=== PATIENT | female | born 1990 | race African-American/Black ===

== ENCOUNTER 2018-10-25 22:47 | Emergency (ER) | payer SELFPAY ==
[~2018-10-25] VITALS: Ht 149.9 cm; Wt 84.4 kg
--- OUTSIDE RECORDS SUMMARY | 2018-10-25 22:50 | XMS REPORT | Clinical Summary ---
Author Author [facility] Organization [facility] Address Unknown Phone Unavailable Care Team Providers Care Instrument Room Technician Name Role Phone Bee Ortiz PCP Allergies Active Allergy Reactions Severity Noted Date Comments Tramadol Itching 03/26/2018 Current Medications Prescription Sig. Disp. Refills Start End Date Status Date pyridoxine (VITAMIN B-6) Take 1 Tab by mouth 2 60 Tab 11 12/02/19 Active 100 mg tabletIndications: times daily. 12 Hyperemesis gravidarum ALPRAZolam (XANAX) 0.5 mg TAKE ONE TABLET BY MOUTH 0 02/15/20 Active tablet THREE TIMES DAILY 18 ergocalciferol (VITAMIN Take 1 capsule by mouth 12 capsule 1 04/28/20 Active D2) 50,000 unit weekly. 18 capsuleIndications: Vitamin D deficiency lidocaine (LIDODERM) 5 % Apply 1 Patch to skin as 30 Patch 3 04/28/20 Active patchIndications: Chronic directed daily Leave 18 pain of multiple joints, patch(es) on for up to 12 History of hip fracture hours, then 12 hours off.. pregabalin (LYRICA) 300 Take 1 capsule by mouth 2 60 capsule 5 04/28/20 Active mg capsuleIndications: times daily. 18 Chronic pain of multiple joints, History of hip fracture ibuprofen (MOTRIN) 800 mg Take 1 tablet by mouth 90 tablet 5 04/28/20 Active tabletIndications: every 8 hours as needed 18 Chronic pain of multiple for Pain. joints, History of hip fracture tiZANidine (ZANAFLEX) 4 Take 2 tablets by mouth 3 150 tablet 0 04/28/20 Active mg tabletIndications: times daily as needed for 18 Chronic pain of multiple Muscle Spasms. joints traZODone (DESYREL) 100 Take 1 tablet by mouth at 30 tablet 1 08/08/20 Active mg tabletIndications: bedtime nightly. 18 Schizoaffective disorder, depressive type lamoTRIgine (LAMICTAL) 25 Take 1 tablet po q day 42 tablet 0 08/08/20 Active mg tabletIndications: for 2 weeks, increase to 18 Schizoaffective disorder, 2 tablets po q day depressive type starting 3, 4 week. naproxen (NAPROSYN) 500 Take 1 tablet by mouth 2 30 tablet 0 08/12/20 Active mg tabletIndications: times daily as needed for 18 Chronic dental pain Pain. lamoTRIgine (LAMICTAL) Take 1 tablet by mouth 30 tablet 1 08/22/20 Active 100 mg tabletIndications: daily. 18 Schizoaffective disorder, depressive type traZODone (DESYREL) 100 Take 2 tablets by mouth 60 tablet 1 08/22/20 Active mg tabletIndications: at bedtime nightly. 18 Schizoaffective disorder, depressive type OLANZapine (ZYPREXA) 20 Take 0.5 tablet po bid. 30 tablet 1 08/22/20 Active mg tabletIndications: 18 Schizoaffective disorder, depressive type clonazePAM (KLONOPIN) 0.5 Take 1 tablet by mouth 2 60 tablet 1 08/22/20 Active mg tabletIndications: times daily as needed for 18 Schizoaffective disorder, Anxiety. depressive type lamoTRIgine (LAMICTAL) Take 100 mg by mouth 1 02/15/20 08/08/20 Discontin 100 mg tablet every morning. 18 18 ued OLANZapine (ZYPREXA) 20 TAKE ONE TABLET BY MOUTH 1 02/15/20 08/08/20 Discontin mg tablet EVERY NIGHT 18 18 ued traZODone (DESYREL) 50 mg TAKE ONE TO TWO TABLETS 1 02/15/20 04/28/20 Discontin tablet BY MOUTH EVERY NIGHT 18 18 ued ibuprofen (MOTRIN) 600 mg Take 1 tablet by mouth 90 tablet 1 03/26/20 04/28/20 Discontin tabletIndications: every 8 hours as needed 18 18 ued Chronic pain of multiple for Pain. joints tiZANidine (ZANAFLEX) 4 Take 1 tablet by mouth 3 30 tablet 0 03/26/20 04/28/20 Discontin mg tabletIndications: times daily as needed for 18 18 ued Chronic pain of multiple Muscle Spasms. joints chlorhexidine (PERIDEX) Swish with 1/2 oz of 473 mL 3 04/09/20 08/01/20 0.12 % mouth solution in mouth for 30 18 18 washIndications: seconds and spit. Use Pericoronitis twice daily.. amoxicillin (AMOXIL) 500 Take 1 capsule by mouth 3 21 capsule 0 04/09/20 04/18/20 mg capsuleIndications: times daily for 7 days. 18 18 Pericoronitis naproxen (NAPROSYN) 500 Take 1 tablet by mouth 2 30 tablet 0 04/09/20 04/28/20 Discontin mg tabletIndications: times daily as needed for 18 18 ued Pericoronitis Pain. traZODone (DESYREL) 100 Take 1-2 tabs at bedtime 50 tablet 3 04/28/20 08/08/20 Discontin mg tabletIndications: as needed for insomnia. 18 18 ued History of hip fracture, Undifferentiated schizophrenia clarithromycin (BIAXIN) Take 1 tablet by mouth 2 20 tablet 0 07/07/20 07/17/20 500 mg tabletIndications: times daily for 10 days. 18 18 H. pylori infection omeprazole (PRILOSEC) 20 Take 1 capsule by mouth 2 28 capsule 0 07/07/20 07/21/20 mg delayed release times daily for 14 days. 18 18 capsuleIndications: H. pylori infection metroNIDAZOLE (FLAGYL) Take 1 tablet by mouth 2 20 tablet 0 07/07/20 07/17/20 500 mg tabletIndications: times daily for 10 days. 18 18 Vaginal discharge, H. pylori infection amoxicillin (AMOXIL) 500 Take 2 capsules by mouth 40 capsule 0 07/07/20 07/17/20 mg capsuleIndications: H. 2 times daily for 10 18 18 pylori infection days. OLANZapine (ZYPREXA) 20 Take 0.5 tablet po bid. 30 tablet 0 08/08/20 08/22/20 Discontin mg tabletIndications: 18 18 ued Schizoaffective disorder, depressive type clonazePAM (KLONOPIN) 1 Take 1 tablet po prn 20 tablet 0 08/08/20 08/22/20 Discontin mg tabletIndications: agitation, max 1 tablet 18 18 ued Schizoaffective disorder, in 24 hrs. depressive type Active Problems Problem Noted Date Schizophrenia 03/26/2018 Chronic pain of multiple joints 03/26/2018 Hyperemesis gravidarum 12/01/2011 Chest pain 11/28/2011 as incidental finding 11/08/2011 Vomiting 11/08/2011 Pelvic pain complicating 11/08/2011 UTI in 11/08/2011 Encounters Date Type Specialty Care Team Description 09/04/2018 Pharmacy Visit 08/29/2018 Pharmacy Visit 08/25/2018 Pharmacy Visit 08/22/2018 Office Visit Psychiatry Malyin Morgan MD Schizoaffective disorder, depressive type (Primary Dx) 08/22/2018 Pharmacy Visit 08/21/2018 Office Visit Family Practice Davis Castillo MD Patient left without Bee Ortiz PA being seen (Primary Dx) 08/21/2018 Pharmacy Visit 08/21/2018 Refill Family Practice Dean Gonzalez MD Chronic pain of multiple joints 08/21/2018 Pharmacy Visit 08/20/2018 Office Visit Dentistry Jj Caraballo DMD Dental caries (Primary Dx) 08/12/2018 Office Visit Dentistry Davis Castillo MD Chronic dental pain Jj Caraballo DMD (Primary Dx); Pericoronitis 08/12/2018 Pharmacy Visit 08/08/2018 Office Visit Psychiatry Maylin Morgan MD Schizoaffective disorder, depressive type (Primary Dx) 08/08/2018 Pharmacy Visit 07/16/2018 Pharmacy Visit 07/09/2018 Pharmacy Visit 07/07/2018 Office Visit Family Practice Bee Ortiz PA Vaginal discharge (Primary Dx); H. pylori infection; Encounter to discuss test results 07/07/2018 Pharmacy Visit 06/03/2018 Pharmacy Visit 05/27/2018 Pharmacy Visit 05/27/2018 Pharmacy Visit 04/28/2018 Ancillary Radiology Bee Ortiz PA Chronic low back pain Procedure without sciatica, unspecified back pain laterality 04/28/2018 Office Visit Family Practice Dean Gonzalez MD History of hip fracture (Primary Dx); Chronic pain of multiple joints; Undifferentiated schizophrenia; Vitamin D deficiency; Chronic low back pain without sciatica, unspecified back pain laterality; Exercise counseling 04/28/2018 Pharmacy Visit 04/28/2018 Pharmacy Visit 04/11/2018 Pharmacy Visit 04/09/2018 Office Visit Dentistry Jj Caraballo, DMD Pericoronitis (Primary Dx) 04/09/2018 Pharmacy Visit 03/31/2018 Pharmacy Visit 03/27/2018 Pharmacy Visit 03/26/2018 Ancillary Radiology Chronic pain of multiple Procedure joints 03/26/2018 Office Visit Family Practice Bee Ortiz PA Annual physical exam (Primary Dx); Chronic pain of multiple joints; Abdominal pain, epigastric; Schizophrenia, unspecified type 03/26/2018 Orders Only Family Practice Bee Ortiz PA Annual physical exam 03/26/2018 Pharmacy Visit after 10/24/2017 Family History Medical History Relation Name Comments Cancer Father colon Hypertension Mother Lipids Mother Relation Name Status Comments Father Mother Alive Social History Tobacco Use Types Packs/Day Years Used Date Never Smoker Smokeless Tobacco: Never Used Alcohol Use Drinks/Week oz/Week Comments No Sex Assigned at Date Recorded Not on file Last Filed Vital Signs Vital Sign Reading Time Taken Blood Pressure 110/70 08/22/2018 9:37 AM CDT Pulse 85 08/22/2018 9:37 AM CDT Temperature 37.3 C (99.1 F) 08/22/2018 9:37 AM CDT Respiratory Rate 20 08/22/2018 9:37 AM CDT Oxygen Saturation - - Inhaled Oxygen - - Concentration Weight 87.1 kg (192 lb) 08/22/2018 9:37 AM CDT Height 152.4 cm (5') 08/22/2018 9:37 AM CDT Body Mass Index 37.5 08/22/2018 9:37 AM CDT Plan of Treatment Date Type Specialty Care Team Description 11/06/2018 Office Visit Psychiatry Maylin Morgan MD [address] [place] [id number] [phone] 11/10/2018 Office Visit Oral Surgery Ref #: [id number] Health Maintenance Due Date Last Done Comments Cervical Cancer Scrn (3 2010 Yrs) IMM Influenza Seasonal 08/25/2018 Oct to January (>/=19 yrs) Procedures Procedure Name Priority Date/Time Associated Diagnosis Comments TRICHOMONAS VAGINALIS Routine 07/07/2018 Results for this 3:33 PM CDT procedure are in the results section. WET MOUNT Routine 07/07/2018 Vaginal discharge Results for this 3:33 PM CDT procedure are in the results section. SAMI STAIN Routine 07/07/2018 Vaginal discharge Results for this 3:33 PM CDT procedure are in the results section. CHLAM/GC DNA AMPLI Routine 07/07/2018 Vaginal discharge Results for this 3:33 PM CDT procedure are in the results section. XRAY SPINE LUMBOSACRAL Routine 04/28/2018 Chronic low back pain Results for this AP-LAT 4:13 PM CDT without sciatica, procedure are in the unspecified back pain results section. laterality XRAY KNEE 1 OR 2 VIEWS Routine 04/28/2018 Chronic pain of multiple Results for this (LIMITED-AP/LAT) 4:13 PM CDT joints procedure are in the History of hip fracture results section. XRAY HIP BILATERAL 2 Routine 04/28/2018 Chronic pain of multiple Results for this VIEWS AND AP PELVIS 4:13 PM CDT joints procedure are in the History of hip fracture results section. H. PYLORI ANTIBODIES, IGG Routine 03/26/2018 Abdominal pain, Results for this 12:44 PM CDT epigastric procedure are in the results section. HIV-1/HIV-2 ROUTINE Routine 03/26/2018 Annual physical exam Results for this SCREENING 10:22 AM CDT procedure are in the results section. VIT D, 25-HYDROXY Routine 03/26/2018 Annual physical exam Results for this 10:22 AM CDT procedure are in the results section. COMPREHENSIVE METABOLIC Routine 03/26/2018 Annual physical exam Results for this PANEL(DBIL NOT INCLUDED) 10:22 AM CDT procedure are in the results section. FREE T4 Routine 03/26/2018 Annual physical exam Results for this 10:22 AM CDT procedure are in the results section. HEMOGLOBIN A1C Routine 03/26/2018 Annual physical exam Results for this 10:22 AM CDT procedure are in the results section. TSH Routine 03/26/2018 Annual physical exam Results for this 10:22 AM CDT procedure are in the results section. LIPID PROFILE Routine 03/26/2018 Annual physical exam Results for this 10:22 AM CDT procedure are in the results section. CBC/DIFF Routine 03/26/2018 Annual physical exam Results for this 10:22 AM CDT procedure are in the results section. XRAY KNEE 1 OR 2 VIEWS Routine 03/26/2018 Chronic pain of multiple Results for this (LIMITED-AP/LAT) 10:00 AM CDT joints procedure are in the results section. XRAY FEMUR 1 VIEW Routine 03/26/2018 Chronic pain of multiple Results for this 10:00 AM CDT joints procedure are in the results section. XRAY HIP BILATERAL 3-4 Routine 03/26/2018 Chronic pain of multiple Results for this VIEWS AND AP PELVIS 10:00 AM CDT joints procedure are in the results section. URINE DRUG SCREEN Routine 03/26/2018 Chronic pain of multiple Results for this 9:17 AM CDT joints procedure are in the results section. UA CHEMISTRIES Routine 03/26/2018 Annual physical exam Results for this 9:17 AM CDT procedure are in the results section. after 10/24/2017 Results * TRICHOMONAS VAGINALIS (07/07/2018 3:33 PM) Trich Vaginalis Negative BT DIAGNOSTIC This test utilizes FDA cleared IMMUNOLOGY APTIMA Trichomonasvaginalis Assay by TMA from [employer] for qualitative nucleic acid amplification test (NAAT) for the detection of ribosome RNA (rRNA) from Trichomonas vaginalis. SPEC DESCRIPTION Endovervical M3 ([facility]) Specimen Cervix Performing Organization Address [facility] Phone Number [employer] DIAGNOSTIC IMMUNOLOGY M3 ([facility]) * CHLAM/GC DNA AMPLI (07/07/2018 3:33 PM) Chlamydia trach Negative BT DIAGNOSTIC IMMUNOLOGY N gonorrhoeae Negative BT DIAGNOSTIC This test utilizes [employer] IMMUNOLOGY Aptima Combo 2 Assay for target amplification of rRNA for the qualitative detection of Chlamydia trachomatis and Neisseria gonorrhoeae. Spec Description Endovervical M3 ([facility]) Specimen Cervix - Endocervical Swab Performing Organization Address [facility] Phone Number [employer] BT DIAGNOSTIC IMMUNOLOGY M3 ([facility]) * WET MOUNT (07/07/2018 3:33 PM) Spec Description Vaginal M3 ([facility]) Order Comments None M3 ([facility]) Exam Bacteria present M2 ([facility]) Epithelial cells Clue cells present Report Status Final 07/07/2018 M2 ([facility]) Specimen Genital, vaginal - Vaginal Performing Organization Address [facility] Phone Number [employer] M3 ([facility]) M2 ([facility]) * SAMI STAIN (07/07/2018 3:33 PM) Spec Description Vaginal M3 ([facility]) Order Comments None M3 ([facility]) Direct Exam No fungus seen by SAMI M2 ([facility]) Report Status Final 07/07/2018 M2 ([facility]) Specimen Genital, vaginal - Vaginal Performing Organization Address [facility] Phone Number MISYS M3 ([facility]) M2 ([facility]) * XRAY HIP BILATERAL 2 VIEWS AND AP PELVIS (04/28/2018 4:13 PM) Impressions Performed At IMPRESSION: SMS 1.Unchanged appearance of the partially visualized plate and screw construct fixating the left femur fracture. 2.No acute osseous abnormality. Dictated By: Adan Whaley MD, 04/28/2018 5:42 PM I have reviewed the study and agree with the findings in this report. Signed By: Bruno Koch MD, 04/29/2018 8:52 AM Narrative Performed At EXAM: BILATERAL HIP RADIOGRAPHS SMS COMPARISON: Hip series on 04/13/2018 DISCUSSION: None Procedure Note Interface, Rad/Mammog In - 04/29/2018 8:57 AM CDT EXAM: BILATERAL HIP RADIOGRAPHS COMPARISON: Hip series on 04/13/2018 DISCUSSION: None IMPRESSION IMPRESSION: 1. Unchanged appearance of the partially visualized plate and screw construct fixating the left femur fracture. 2. No acute osseous abnormality. Dictated By: Adan Whaley MD, 04/28/2018 5:42 PM I have reviewed the study and agree with the findings in this report. Signed By: Bruno Koch MD, 04/29/2018 8:52 AM Performing Organization Address [facility] Phone Number SMS * XRAY KNEE 1 OR 2 VIEWS (LIMITED-AP/LAT) (04/28/2018 4:13 PM) Only the most recent of 2 results within the time period is included. Impressions Performed At IMPRESSION: SMS 1.Patient is status post ORIF with placement of plate and screw construct fixating a healed distal femur fracture. Stable mild lucency around the distal screws. 2.No new findings. Dictated By: Adan Whaley MD, 04/28/2018 5:44 PM I have reviewed the study and agree with the findings in this report. Signed By: Bruno Koch MD, 04/29/2018 8:53 AM Narrative Performed At EXAM: RIGHTKNEE RADIOGRAPHS SMS HISTORY:Knee pain COMPARISON: Knee radiograph on 03/26/2018 DISCUSSION: See impression Procedure Note Interface, Rad/Mammog In - 04/29/2018 8:58 AM CDT EXAM: RIGHT KNEE RADIOGRAPHS HISTORY: Knee pain COMPARISON: Knee radiograph on 03/26/2018 DISCUSSION: See impression IMPRESSION IMPRESSION: 1. Patient is status post ORIF with placement of plate and screw construct fixating a healed distal femur fracture. Stable mild lucency around the distal screws. 2. No new findings. Dictated By: Adan Whaley MD, 04/28/2018 5:44 PM I have reviewed the study and agree with the findings in this report. Signed By: Bruno Koch MD, 04/29/2018 8:53 AM Performing Organization Address [facility] Phone Number SMS * XRAY SPINE LUMBOSACRAL AP-LAT (04/28/2018 4:13 PM) Impressions Performed At IMPRESSION: SMS No acute osseous lesion. Dictated By: Adan Whaley MD, 04/28/2018 5:45 PM I have reviewed the study and agree with the findings in this report. Signed By: Bruno Koch MD, 04/29/2018 8:53 AM Narrative Performed At EXAM: Lumbosacral spine series SMS TECHNIQUE: AP, Lateral and spot lateralviews (3 total images provided) HISTORY:chronic back pain DISCUSSION: There are five nonrib-bearing lumbar vertebral bodies. The alignment is normal. No displaced fracture or compression deformity is identified. The disc spaces are well maintained. The sacrum is partially obscured by stool and overlying bowel gas. Procedure Note Interface, Rad/Mammog In - 04/29/2018 8:59 AM CDT EXAM: Lumbosacral spine series TECHNIQUE: AP, Lateral and spot lateral views (3 total images provided) HISTORY: chronic back pain DISCUSSION: There are five nonrib-bearing lumbar vertebral bodies. The alignment is normal. No displaced fracture or compression deformity is identified. The disc spaces are well maintained. The sacrum is partially obscured by stool and overlying bowel gas. IMPRESSION IMPRESSION: No acute osseous lesion. Dictated By: Adan Whaley MD, 04/28/2018 5:45 PM I have reviewed the study and agree with the findings in this report. Signed By: Bruno Koch MD, 04/29/2018 8:53 AM Performing Organization Address [facility] Phone Number SMS * H. PYLORI ANTIBODIES, IGG (03/26/2018 12:44 PM) H. pylori, IgG, Abs 4.91 LABORATORY Reference range: 0.00 to 0.79 [employer]PORATION OF Unit: Index Value JOCELYN (note) Nega tive <0.80 Equi vocal0.80 - 0.89 Posi tive >0.89 Specimen Blood bag - BLOOD Performing Organization Address City/State/Zipcode Phone Number [facility] [address] [place] [address] JOCELYN 145 * VIT D, 25-HYDROXY (03/26/2018 10:22 AM) Vit D, 25-Hydroxy 24.3 (L) 30 - 100 ng/mL BT DIAGNOSTIC Comment: IMMUNOLOGY Vitamin D deficiency has been defined by the [place] of Medicine and Endocrine Society guideline as a level of serum 25-OH Vitamin D less than 20 ng/mL. The Endocrine Society further defines Vitamin D insufficiency as a level between 21 and 29 ng/mL and sufficiency as a level between 30 and 100 ng/mL. Performing Organization Address City/[facility] Phone Number [facility] BT DIAGNOSTIC IMMUNOLOGY * HIV-1/HIV-2 ROUTINE SCREENING (03/26/2018 10:22 AM) HIV-1/HIV-2 Negative NEG BT MAIN-STATION 3 Performing Organization Address [facility] Phone Number KATHLEEN BT MAIN-STATION 3 * HEMOGLOBIN A1C (03/26/2018 10:22 AM) Hemoglobin A1c 5.8 4.3 - 6.1 % BT DIAGNOSTIC IMMUNOLOGY Est Average Gluc 119.8 mg/dL BT DIAGNOSTIC IMMUNOLOGY Specimen Blood Performing Organization Address [facility] Phone Number MISYS BT DIAGNOSTIC IMMUNOLOGY * COMPREHENSIVE METABOLIC PANEL(DBIL NOT INCLUDED) (03/26/2018 10:22 AM) Albumin 4.5 3.7 - 5.3 g/dL BT MAIN-STATION 4 Calcium 9.5 8.6 - 10.3 mg/dL BT MAIN-STATION 4 CO2 24 21 - 31 mmol/L BT MAIN-STATION 4 Chloride 106 98 - 107 mmol/L BT MAIN-STATION 4 Creatinine 0.70 0.6 - 1.2 mg/dL BT MAIN-STATION 4 Glucose 87 70 - 110 mg/dL BT MAIN-STATION 4 Alk Phos 71 34 - 104 U/L BT MAIN-STATION 4 Potassium 4.4 3.5 - 5.1 mmol/L BT MAIN-STATION 4 Sodium 137 136 - 145 mmol/L BT MAIN-STATION 4 ALT 31 7 - 52 U/L BT MAIN-STATION 4 AST 19 13 - 39 U/L BT MAIN-STATION 4 Urea Nitrogen 13 7 - 25 mg/dL BT MAIN-STATION 4 T Bilirubin 0.4 0.2 - 1.2 mg/dL BT MAIN-STATION 4 T Protein 7.2 6.0 - 8.3 g/dL BT MAIN-STATION 4 GFR, Estimated >60 mL/min/1.73 m2 BT MAIN-STATION 4 GFR, Estim, Afr-Am >60 mL/min/1.73 m2 BT MAIN-STATION 4 Anion Gap 7 BT MAIN-STATION 4 Specimen Blood Performing Organization Address [facility] Phone Number MISYS MAIN-STATION 4 * TSH (03/26/2018 10:22 AM) TSH 0.68 0.45 - 5.33 uIU/mL BT MAIN-STATION 4 Specimen Blood Performing Organization Address [facility] Phone Number MISYS BT MAIN-STATION 4 * FREE T4 (03/26/2018 10:22 AM) Free T4 0.76 0.61 - 1.12 ng/dl BT MAIN-STATION 4 Comment: females: 1st Trimester-0.52-1.10 ng/dL 2nd Trimester=0.45-0.99 ng/dL 3rd Trimester=0.48-0.95 ng/dL Specimen Blood Performing Organization Address [facility] Phone Number MISYS BT MAIN-STATION 4 * LIPID PROFILE (03/26/2018 10:22 AM) Cholesterol 181 mg/dL BT MAIN-STATION 4 Comment: REFERENCE RANGE: Desirable: <200 mg/dL Borderline: 200-240 mg/dL High Risk: >240 mg/dL Triglyceride 91 <150 mg/dL BT MAIN-STATION 4 Comment: REFERENCE RANGE: Normal: <150 mg/dL Borderline High: 150-199 mg/dL High: 200-499 mg/dL Very High: >qg=626 mg/dL HDL 33 mg/dL BT MAIN-STATION 4 Comment: Increased CHD risk: <40 mg/dL Decreased CHD risk: >60 mg/dL LDL 130 mg/dL BT MAIN-STATION 4 Comment: REFERENCE RANGE: Optimal: <100 mg/dL Near Optimal: 100-129 mg/dL Borderline High: 130-159 mg/dL High: 160-189 mg/dL Very High: >tk=024 mg/dL Specimen Blood Performing Organization Address [facility] Phone Number MISYS BT MAIN-STATION 4 * CBC/DIFF (03/26/2018 10:22 AM) WBC 5.8 4.5 - 11.0 K/uL BT MAIN-STATION 2 RBC 4.86 4.20 - 5.40 M/uL BT MAIN-STATION 2 Hemoglobin 13.5 12.0 - 16.0 g/dL BT MAIN-STATION 2 Hematocrit 41.2 37.0 - 47.0 % BT MAIN-STATION 2 MCV 85 82 - 92 fL BT MAIN-STATION 2 MCH 27.8 27.0 - 32.0 pg BT MAIN-STATION 2 MCHC 32.8 32.0 - 36.0 g/dL BT MAIN-STATION 2 RDW 42.5 36.4 - 46.3 fL BT MAIN-STATION 2 Platelet 313 150 - 400 K/uL BT MAIN-STATION 2 Mean Platelet Volume 11.7 9.4 - 12.4 fL BT MAIN-STATION 2 Percent NRBC 0.0 BT MAIN-STATION 2 Absolute NRBC 0.00 BT MAIN-STATION 2 Neutrophil 45.9 34.0 - 70.0 % BT MAIN-STATION 2 Lymphocyte 45.6 20.0 - 50.0 % BT MAIN-STATION 2 Monocyte 6.3 5.0 - 12.0 % BT MAIN-STATION 2 Eosinophil 1.0 0.7 - 5.0 % BT MAIN-STATION 2 Basophil 1.0 0.1 - 1.2 % BT MAIN-STATION 2 Pct Immat Gran 0.2 0.0 - 0.5 BT MAIN-STATION 2 Neutrophil, Abs 2.64 1.56 - 6.13 K/uL BT MAIN-STATION 2 Lymphocyte, Abs 2.62 1.18 - 3.74 K/uL BT MAIN-STATION 2 Monocyte, Abs 0.36 0.24 - 0.36 K/uL BT MAIN-STATION 2 Eosinophil, Abs 0.06 0.04 - 0.36 K/uL BT MAIN-STATION 2 Basophil, Abs 0.06 0.01 - 0.08 K/uL BT MAIN-STATION 2 Absol Immat Gran 0.01 0.00 - 0.03 K/uL BT MAIN-STATION 2 Specimen Blood Performing Organization Address [facility] Phone Number MISYS MAIN-STATION 2 * XRAY FEMUR 1 VIEW (03/26/2018 10:00 AM) Impressions Performed At IMPRESSION: SMS 1. Status post ORIF with a plate-screw construct of a left femur fracture in the late stages of healing. Alignment is anatomic. No evidence of hardware failure. 2. No acute radiographic abnormality of the pelvis, hips or left femur. Dictated By: Cristian Foster MD, 03/26/2018 10:42 AM I have reviewed the study and agree with the findings in this report. Signed By: Salvador Cadet MD, 03/26/2018 11:17 AM Narrative Performed At EXAM: XRAY FEMUR 1 VIEW, XRAY HIP BILATERAL 3-4 VIEWS AND AP PELVIS SMS INDICATION: 27 y.o. female-left thigh pain hx of hardware COMPARISON: None. DISCUSSION: None Procedure Note Interface, Rad/Mammog In - 03/26/2018 11:22 AM CDT EXAM: XRAY FEMUR 1 VIEW, XRAY HIP BILATERAL 3-4 VIEWS AND AP PELVIS INDICATION: 27 y.o. female-left thigh pain hx of hardware COMPARISON: None. DISCUSSION: None IMPRESSION IMPRESSION: 1. Status post ORIF with a plate-screw construct of a left femur fracture in the late stages of healing. Alignment is anatomic. No evidence of hardware failure. 2. No acute radiographic abnormality of the pelvis, hips or left femur. Dictated By: Cristian Foster MD, 03/26/2018 10:42 AM I have reviewed the study and agree with the findings in this report. Signed By: Salvador Cadet MD, 03/26/2018 11:17 AM Performing Organization Address [facility] [place] Phone Number SMS * XRAY HIP BILATERAL 3-4 VIEWS AND AP PELVIS (03/26/2018 10:00 AM) Impressions Performed At IMPRESSION: SMS 1. Status post ORIF with a plate-screw construct of a left femur fracture in the late stages of healing. Alignment is anatomic. No evidence of hardware failure. 2. No acute radiographic abnormality of the pelvis, hips or left femur. Dictated By: Cristian Foster MD, 03/26/2018 10:42 AM I have reviewed the study and agree with the findings in this report. Signed By: Salvador Cadet MD, 03/26/2018 11:17 AM Narrative Performed At EXAM: XRAY FEMUR 1 VIEW, XRAY HIP BILATERAL 3-4 VIEWS AND AP PELVIS SMS INDICATION: 27 y.o. female-left thigh pain hx of hardware COMPARISON: None. DISCUSSION: None Procedure Note Interface, Rad/Mammog In - 03/26/2018 11:22 AM CDT EXAM: XRAY FEMUR 1 VIEW, XRAY HIP BILATERAL 3-4 VIEWS AND AP PELVIS INDICATION: 27 y.o. female-left thigh pain hx of hardware COMPARISON: None. DISCUSSION: None IMPRESSION IMPRESSION: 1. Status post ORIF with a plate-screw construct of a left femur fracture in the late stages of healing. Alignment is anatomic. No evidence of hardware failure. 2. No acute radiographic abnormality of the pelvis, hips or left femur. Dictated By: Cristian Foster MD, 03/26/2018 10:42 AM I have reviewed the study and agree with the findings in this report. Signed By: Salvador Cadet MD, 03/26/2018 11:17 AM Performing Organization Address [facility] [place] Phone Number SMS * UA CHEMISTRIES (03/26/2018 9:17 AM) Color Yellow M2 ([facility]) Clarity Clear M2 ([facility]) Spec [place] 1.020 1.001 - 1.035 M2 ([facility]) pH 6.0 5 - 8 M2 ([facility]) Protein Negative NEG M2 ([facility]) Glucose Negative NEG M2 ([facility]) Ketone Negative NEG M2 ([facility]) Bilirubin Negative NEG M2 ([facility]) Nitrate Negative NEG M2 ([facility]) Urobilinogen 0.2 0.2 - 1.0 EU/dL M2 ([facility]) Leukocyte Negative NEG M2 ([facility]) Blood Negative NEG M2 ([facility]) Specimen Urine Performing Organization Address [facility] [place] Phone Number MISYS M2 ([facility]) * URINE DRUG SCREEN (03/26/2018 9:17 AM) Amphetamine Negative NEG BT MAIN-ST[facility] 1 Comment: Calibrated Standard: D-Methamphetamine Positive if urine level >ty=7686 ng/mL Test performed on [id number] using EMIT Immunoassay Barbiturate Negative NEG BT MAIN-ST[facility] 1 Comment: Calibrated Standard: Secobarbital Positive if urine level is >kk=796 ng/mL Test performed on [id number] using EMIT Immunoassay Benzodiazepine Positive (A) NEG BT [facility] 1 Comment: Calibrated Standard: Lormethazepam Positive if urine level is >cd=385 ng/mL Test performed on [id number] using EMIT Immunoassay Cannabinoid Negative NEG BT [facility] 1 Comment: Calibrated Standard: 11 nor-delta(9)-THC carboxylic a Positive if urine level >or=50 Test performed on [id number] using EMIT Immunoassay Cocaine Negative NEG BT [facility]IN-[facility] 1 Comment: Calibrated Standard: Benzoylecgonine Positive if urine level >ha=703 Test performed on [id number] using EMIT Immunoassay Opiate, Ur Negative NEG BT [facility] 1 Comment: Calibrated Standard: Morphine Positive if urine level >aq=115 Test performed on [id number] using EMIT Immunoassay PCP Negative NEG BT [facility] 1 Comment: Calibrated Standard: Phencyclidine Positive if urine level >or=25 Test performed on [id number] using EMIT Immunoassay Urine Toxicology Screen results are to be used only for Medical purposes. Specimen Urine Performing Organization Address City/State/Zipcode Phone Number MISYS BT MAIN-[facility] 1 after 10/24/2017
--- OUTSIDE RECORDS SUMMARY | 2018-10-25 22:50 | XMS REPORT | Clinical Summary ---
Author Author PAMELLA [facility] Address Unknown Phone Unavailable Care Team Providers Care Summer School Coordinator Name Role Phone Sharpless PCP Allergies Comments Active Allergy Reactions Severity Noted Date Tramadol Hcl Hives 06/07/2017 Medications End Date Status Medication Sig Dispensed Refills Start Date Active amoxicillin (AMOXIL) 875 Take 875 mg 0 MG tablet by mouth 2 (two) times daily. Active Problems Not on file Family History Medical History Relation Name Comments Cancer Father Hypertension Father Hypertension Mother Relation Name Status Comments Father Mother Social History Date Tobacco Use Types Packs/Day Years Used Never Smoker Tobacco Cessation: Counseling Given: No Alcohol Use Drinks/Week oz/Week Comments No Sex Assigned at Date Recorded Not on file Industry Job Start Date Occupation Not on file Not on file Not on file Travel End Travel History Travel Start No recent travel history available. Last Filed Vital Signs Not on file Plan of Treatment Not on file Results Not on fileafter 10/24/2017 Insurance Payer Benefit Subscriber ID Type Phone Address Plan / Group MEDICAID MEDICAID xxxxxxxxx Medicaid [place]
--- OUTSIDE RECORDS SUMMARY | 2018-10-25 22:51 | XMS REPORT ---
Author Author [facility] Address Unknown Phone Unavailable Care Team Providers Care Telephone Directory Distributor Driver Name Role Phone LÓPEZ PAULA ZAN Unavailable Unavailable SHOAIB PÉREZ Unavailable Unavailable Problems This patient has no known problems. Allergies, Adverse Reactions, Alerts This patient has no known allergies or adverse reactions. Medications This patient has no known medications. Encounters Start Date/Time End Date/Time Encounter Type Admission Type Attending [facility] Facility Care Department Encounter ID 2018-11-10 00:00:00 2018-11-10 00:00:00 Outpatient [facility] [id number] 2018-11-06 00:00:00 2018-11-06 00:00:00 Outpatient [facility] [id number] 2018-08-25 00:00:00 2018-08-25 00:00:00 Outpatient [facility] [id number] 2018-08-22 09:44:30 2018-08-22 09:44:30 Outpatient [facility] [id number] 2018-08-21 09:30:00 2018-08-21 09:30:00 Outpatient [facility] [id number] 2018-08-20 12:13:42 2018-08-20 12:13:42 Outpatient [facility] [id number] Results Test Description Test Time Test Comments Text Results Atomic Results Result Comments WET PREP 2017-08-16 21:51:00 WBC WET PREP (BEAKER) (test jhiz=938) Few white blood cells seen CLUE CELLS (BEAKER) (test ocel=631) No clue cells seen YEAST WET PREP (BEAKER) (test qrrk=597) Few budding yeast seen TRICH WET PREP (BEAKER) (test kwki=853) No Trichomonas seen BACT WET PREP (BEAKER) (test oual=630) Moderate bacteria seen URINALYSIS W/ [id number] 21:50:00* Test Item Value Reference Range Comments COLOR (BEAKER) (test pbpz=480) Yellow CLARITY (BEAKER) (test uvxp=577) Clear SPECIFIC GRAVITY UA (BEAKER) (test ehzu=180) 1.025 1.001-1.035 PH UA (BEAKER) (test tfkp=954) 6.0 5.0-8.0 PROTEIN UA (BEAKER) (test khjc=240) Negative Negative GLUCOSE UA (BEAKER) (test mcsq=704) Negative Negative KETONES UA (BEAKER) (test kekr=173) Negative Negative BILIRUBIN UA (BEAKER) (test iqau=215) Negative Negative BLOOD UA (BEAKER) (test drsn=569) Trace Negative NITRITE UA (BEAKER) (test avzp=839) Negative Negative LEUKOCYTE ESTERASE UA (BEAKER) (test dajx=856) Trace Negative UROBILINOGEN UA (BEAKER) (test dqfh=348) 0.2 mg/dL 0.2-1.0 BACTERIA (BEAKER) (test qudy=159) Few MUCUS (BEAKER) (test arsi=4913) Few RBC UA-MANUAL (BEAKER) (test elzs=5733) 5-10 /HPF WBC UA-MANUAL (BEAKER) (test cggg=1935) 5-10 /HPF SQUAMOUS EPITHELIAL MANUAL (BEAKER) (test nhjp=0599) 20-50 /HPF SOURCE(BEAKER) (test bmto=4826) SCREEN, [id number] 21:47:00* Test Item Value Reference Range Comments TEST URINE (BEAKER) (test irql=227) Negative BASIC METABOLIC [id number] 17:45:00* Test Item Value Reference Range Comments SODIUM (BEAKER) (test oyxx=657) 136 meq/L 135-148 POTASSIUM (BEAKER) (test vmcc=659) 4.7 meq/L 3.6-5.5 CHLORIDE (BEAKER) (test sxrv=744) 107 meq/L 98-106 CO2 (BEAKER) (test erjw=887) 21 meq/L 24-32 BLOOD UREA NITROGEN (BEAKER) (test wqmo=160) 14 mg/dL 10-26 CREATININE (BEAKER) (test hjnc=006) 0.79 mg/dL 0.50-1.20 GLUCOSE RANDOM (BEAKER) (test byro=631) 94 mg/dL 70-110 CALCIUM (BEAKER) (test ilzh=278) 8.9 mg/dL 8.5-10.5 EGFR (BEAKER) (test qqid=9338) 106 mL/min/1.73 sq m ESTIMATED GFR IS NOT ACCURATE CREATININE CLEARANCE IN PREDICTING GLOMERULAR FILTRATION RATE. ESTIMATED GFR IS NOT APPLICABLE FOR DIALYSIS PATIENTS. HEPATIC FUNCTION [id number] 17:45:00* Test Item Value Reference Range Comments TOTAL PROTEIN (BEAKER) (test rxqz=075) 7.6 gm/dL 6.0-8.5 ALBUMIN (BEAKER) (test edqp=7775) 4.0 g/dL 3.5-5.0 BILIRUBIN TOTAL (BEAKER) (test nugv=434) 0.5 mg/dL 0.1-1.2 BILIRUBIN DIRECT (BEAKER) (test cvtz=498) 0.4 mg/dL 0.0-0.4 ALKALINE PHOSPHATASE (BEAKER) (test tder=198) 56 U/L 30-115 AST (SGOT) (BEAKER) (test mxnv=690) 25 U/L 5-40 ALT (SGPT) (BEAKER) (test apbm=567) 25 U/L 5-50 [id number] 17:45:00* Test Item Value Reference Range Comments LIPASE (BEAKER) (test qaxl=673) 65 U/L 40-240 URINALYSIS W/ [id number] 17:43:00* Test Item Value Reference Range Comments COLOR (BEAKER) (test zxxt=090) Dark Yellow CLARITY (BEAKER) (test lwue=084) Clear SPECIFIC GRAVITY UA (BEAKER) (test idas=521) 1.020 1.001-1.035 PH UA (BEAKER) (test hfjv=768) 6.0 5.0-8.0 PROTEIN UA (BEAKER) (test uqol=475) Negative Negative GLUCOSE UA (BEAKER) (test jsuv=636) Negative Negative KETONES UA (BEAKER) (test ierh=453) Trace Negative BILIRUBIN UA (BEAKER) (test dkul=027) Negative Negative BLOOD UA (BEAKER) (test nxll=762) Trace Negative NITRITE UA (BEAKER) (test hlkn=259) Negative Negative LEUKOCYTE ESTERASE UA (BEAKER) (test wfjl=165) Negative Negative UROBILINOGEN UA (BEAKER) (test aqha=840) 1.0 mg/dL 0.2-1.0 BACTERIA (BEAKER) (test ptqx=187) Occasional MUCUS (BEAKER) (test femy=5721) Few RBC UA-MANUAL (BEAKER) (test qnbz=0321) <5 /HPF WBC UA-MANUAL (BEAKER) (test uyin=0226) <5 /HPF SQUAMOUS EPITHELIAL MANUAL (BEAKER) (test flln=3774) <5 /HPF SOURCE(BEAKER) (test hpiv=0654) SCREEN, [id number] 17:38:00* Test Item Value Reference Range Comments TEST URINE (BEAKER) (test dfsw=701) Negative CBC W/PLT COUNT & AUTO [id number] 17:37:00* Test Item Value Reference Range Comments WHITE BLOOD CELL COUNT (BEAKER) (test fhud=536) 7.0 10e3/ L 4.0-10.0 RED BLOOD CELL COUNT (BEAKER) (test ybbm=024) 4.68 10e6/ L 4.00-5.00 HEMOGLOBIN (BEAKER) (test bklg=385) 13.0 g/dL 12.0-15.0 HEMATOCRIT (BEAKER) (test uneb=388) 38.8 % 36.0-45.0 MEAN CORPUSCULAR VOLUME (BEAKER) (test dpmx=805) 82.8 fL 82.0-99.0 MEAN CORPUSCULAR HEMOGLOBIN (BEAKER) (test nqgy=195) 27.8 pg 27.0-33.0 MEAN CORPUSCULAR HEMOGLOBIN CONC (BEAKER) (test eimg=785) 33.6 g/dL 32.0-36.0 RED CELL DISTRIBUTION WIDTH (BEAKER) (test ncnu=727) 13.5 % 10.3-14.2 PLATELET COUNT (BEAKER) (test bnhk=114) 342 10e3/ L 150-430 MEAN PLATELET VOLUME (BEAKER) (test nsnj=555) 9.1 fL 6.5-10.5 NEUTROPHILS RELATIVE PERCENT (BEAKER) (test lucz=625) 44 % LYMPHOCYTES RELATIVE PERCENT (BEAKER) (test ijgx=025) 47 % MONOCYTES RELATIVE PERCENT (BEAKER) (test oopk=808) 7 % EOSINOPHILS RELATIVE PERCENT (BEAKER) (test tqji=247) 2 % BASOPHILS RELATIVE PERCENT (BEAKER) (test cmnc=632) 1 % NEUTROPHILS ABSOLUTE COUNT (BEAKER) (test vkxo=046) 3.07 10e3/ L 1.80-8.00 LYMPHOCYTES ABSOLUTE COUNT (BEAKER) (test igin=119) 3.30 10e3/ L 1.48-4.50 MONOCYTES ABSOLUTE COUNT (BEAKER) (test uvqx=621) 0.48 10e3/ L 0.00-1.30 EOSINOPHILS ABSOLUTE COUNT (BEAKER) (test kqnf=459) 0.13 10e3/ L 0.00-0.50 BASOPHILS ABSOLUTE COUNT (BEAKER) (test gmpi=311) 0.04 10e3/ L 0.00-0.20
[2018-10-25] MEDS ORDERED: CYCLOBENZAPRINE HCL 10 MG TAB PO ONE (23:30)
[2018-10-25] MEDS ORDERED: KETOROLAC TROMETHAMINE 60 MG/2 ML VIAL IM ONE (23:30)
== END 2018-10-26 00:40 | disposition home or self-care (01) ==
LOC: FSED 22:47
DX: M54.6 Pain in thoracic spine (principal); S23.3XXA Sprain of ligaments of thoracic spine, initial encounter; M62.830 Muscle spasm of back
CPT/HCPCS: 99283

== ENCOUNTER 2018-11-14 15:52 | Emergency (ER) | payer SELFPAY ==
[~2018-11-14] VITALS: Ht 180.3 cm; Wt 86.2 kg
--- OUTSIDE RECORDS SUMMARY | 2018-11-14 15:55 | XMS REPORT | Clinical Summary ---
Author Author P[facility]LLA [facility] Address Unknown Phone Unavailable Care Team Providers Care Route Sales Trainee Name Role Phone Sharpless PCP Allergies Comments [...] Not on file Results Not on fileafter 11/13/2017 Insurance Payer Benefit Subscriber ID Type Phone Address Plan / Group MEDICAID MEDICAID xxxxxxxxx Medicaid OF [place]
--- OUTSIDE RECORDS SUMMARY | 2018-11-14 15:55 | XMS REPORT | Clinical Summary ---
Author Author [facility] Organization [facility] Address Unknown Phone Unavailable Care Team Providers Care Clinical Research Coordinator Name Role Phone Bee Ortiz PCP Allergies Comments Active Allergy Reactions Severity Noted Date Tramadol Itching 03/26/2018 Medications End Date Status Medication Sig Dispensed Refills Start Date Active pyridoxine (VITAMIN B-6) Take 1 Tab by 60 Tab 11 100 mg tabletIndications: mouth 2 times 2 Hyperemesis gravidarum daily. Active ALPRAZolam (XANAX) 0.5 mg TAKE ONE 0 tablet TABLET BY 8 MOUTH THREE TIMES DAILY Active ergocalciferol (VITAMIN Take 1 12 capsule 1 D2) 50,000 unit capsule by 8 capsuleIndications: mouth weekly. Vitamin D deficiency Active lidocaine (LIDODERM) 5 % Apply 1 Patch 30 Patch 3 patchIndications: Chronic to skin as 8 pain of multiple joints, directed History of hip fracture daily Leave patch(es) on for up to 12 hours, then 12 hours off.. Active pregabalin (LYRICA) 300 Take 1 60 capsule 5 mg capsuleIndications: capsule by 8 Chronic pain of multiple mouth 2 times joints, History of hip daily. fracture Active ibuprofen (MOTRIN) 800 mg Take 1 tablet 90 tablet 5 tabletIndications: by mouth 8 Chronic pain of multiple every 8 hours joints, History of hip as needed for fracture Pain. Active tiZANidine (ZANAFLEX) 4 Take 2 150 tablet 0 mg tabletIndications: tablets by 8 Chronic pain of multiple mouth 3 times joints daily as needed for Muscle Spasms. Active traZODone (DESYREL) 100 Take 1 tablet 30 tablet 1 mg tabletIndications: by mouth at 8 Schizoaffective disorder, bedtime depressive type nightly. Active lamoTRIgine (LAMICTAL) 25 Take 1 tablet 42 tablet 0 201 mg tabletIndications: po q day for 8 Schizoaffective disorder, 2 weeks, depressive type increase to 2 tablets po q day starting 3, 4 week. Active naproxen (NAPROSYN) 500 Take 1 tablet 30 tablet 0 201 mg tabletIndications: by mouth 2 8 Chronic dental pain times daily as needed for Pain. Active lamoTRIgine (LAMICTAL) Take 1 tablet 30 tablet 1 100 mg tabletIndications: by mouth 8 Schizoaffective disorder, daily. depressive type Active traZODone (DESYREL) 100 Take 2 60 tablet 1 mg tabletIndications: tablets by 8 Schizoaffective disorder, mouth at depressive type bedtime nightly. Active OLANZapine (ZYPREXA) 20 Take 0.5 30 tablet 1 mg tabletIndications: tablet po 8 Schizoaffective disorder, bid. depressive type Active clonazePAM (KLONOPIN) 0.5 Take 1 tablet 60 tablet 1 mg tabletIndications: by mouth 2 8 Schizoaffective disorder, times daily depressive type as needed for Anxiety. 08/08/2018 Discontinued lamoTRIgine (LAMICTAL) Take 100 mg 1 100 mg tablet by mouth 8 every morning. 08/08/2018 Discontinued OLANZapine (ZYPREXA) 20 TAKE ONE 1 mg tablet TABLET BY 8 MOUTH EVERY NIGHT 04/28/2018 Discontinued traZODone (DESYREL) 50 mg TAKE ONE TO 1 tablet TWO TABLETS 8 BY MOUTH EVERY NIGHT 04/28/2018 Discontinued ibuprofen (MOTRIN) 600 mg Take 1 tablet 90 tablet 1 tabletIndications: by mouth 8 Chronic pain of multiple every 8 hours joints as needed for Pain. 04/28/2018 Discontinued tiZANidine (ZANAFLEX) 4 Take 1 tablet 30 tablet 0 201 mg tabletIndications: by mouth 3 8 Chronic pain of multiple times daily joints as needed for Muscle Spasms. 08/01/2018 chlorhexidine (PERIDEX) Swish with 473 mL 3 0.12 % mouth 1/2 oz of 8 washIndications: solution in Pericoronitis mouth for 30 seconds and spit. Use twice daily.. 04/18/2018 amoxicillin (AMOXIL) 500 Take 1 21 capsule 0 mg capsuleIndications: capsule by 8 Pericoronitis mouth 3 times daily for 7 days. 04/28/2018 Discontinued naproxen (NAPROSYN) 500 Take 1 tablet 30 tablet 0 mg tabletIndications: by mouth 2 8 Pericoronitis times daily as needed for Pain. 08/08/2018 Discontinued traZODone (DESYREL) 100 Take 1-2 tabs 50 tablet 3 mg tabletIndications: at bedtime as 8 History of hip fracture, needed for Undifferentiated insomnia. schizophrenia 07/17/2018 clarithromycin (BIAXIN) Take 1 tablet 20 tablet 0 500 mg tabletIndications: by mouth 2 8 H. pylori infection times daily for 10 days. 07/21/2018 omeprazole (PRILOSEC) 20 Take 1 28 capsule 0 mg delayed release capsule by 8 capsuleIndications: H. mouth 2 times pylori infection daily for 14 days. 07/17/2018 metroNIDAZOLE (FLAGYL) Take 1 tablet 20 tablet 0 500 mg tabletIndications: by mouth 2 8 Vaginal discharge, H. times daily pylori infection for 10 days. 07/17/2018 amoxicillin (AMOXIL) 500 Take 2 40 capsule 0 mg capsuleIndications: H. capsules by 8 pylori infection mouth 2 times daily for 10 days. 08/22/2018 Discontinued OLANZapine (ZYPREXA) 20 Take 0.5 30 tablet 0 mg tabletIndications: tablet po 8 Schizoaffective disorder, bid. depressive type 08/22/2018 Discontinued clonazePAM (KLONOPIN) 1 Take 1 tablet 20 tablet 0 mg tabletIndications: po prn 8 Schizoaffective disorder, agitation, depressive type max 1 tablet in 24 hrs. Active Problems Problem Noted Date Schizophrenia 03/26/2018 Chronic pain of multiple joints 03/26/2018 Hyperemesis gravidarum 12/01/2011 Chest pain 11/28/2011 as incidental finding 11/08/2011 Vomiting 11/08/2011 Pelvic pain complicating 11/08/2011 UTI in 11/08/2011 Encounters Care Team Description Date Type Specialty Graham Laughlin DMD Encounter for screening for dental disorder (Primary Dx) 11/10/2018 Office Visit Oral Surgery 11/10/2018 Travel Maylin Morgan MD Schizoaffective disorder, depressive type (Primary Dx) 08/22/2018 Office Visit Psychiatry Davis Castillo MD Kaikai, Fatmata B, PA Patient left without being seen (Primary Dx) 08/21/2018 Office Visit Family Practice Dean Gonzalez MD Chronic pain of multiple joints 08/21/2018 Refill Family Practice Jj Caraballo DMD Dental caries (Primary Dx) 08/20/2018 Office Visit Dentistry Davis Castillo MD Okoli, Anthony C, DMD Chronic dental pain (Primary Dx); Pericoronitis 08/12/2018 Office Visit Dentistry Maylin Morgan MD Schizoaffective disorder, depressive type (Primary Dx) 08/08/2018 Office Visit Psychiatry Bee Ortiz PA Vaginal discharge (Primary Dx); H. pylori infection; Encounter to discuss test results 07/07/2018 Office Visit Family Practice Bee Ortiz PA Chronic low back pain without sciatica, unspecified back pain laterality 04/28/2018 Ancillary Radiology Procedure Dean Gonzalez MD History of hip fracture (Primary Dx); Chronic pain of multiple joints; Undifferentiated schizophrenia; Vitamin D deficiency; Chronic low back pain without sciatica, unspecified back pain laterality; Exercise counseling 04/28/2018 Office Visit Family Practice Jj Caraballo DMD Pericoronitis (Primary Dx) 04/09/2018 Office Visit Dentistry Chronic pain of multiple joints 03/26/2018 Ancillary Radiology Procedure Bee Ortiz PA Annual physical exam (Primary Dx); Chronic pain of multiple joints; Abdominal pain, epigastric; Schizophrenia, unspecified type 03/26/2018 Office Visit Family Practice Bee Ortiz PA Annual physical exam 03/26/2018 Orders Only Family Practice after 11/13/2017 Family History Medical History Relation Name Comments Cancer Father colon Hypertension Mother Lipids Mother Relation Name Status Comments Father Mother Alive Social History Date Tobacco Use Types Packs/Day Years Used Never Smoker Smokeless Tobacco: Never Used Alcohol Use Drinks/Week oz/Week Comments No Sex Assigned at Date Recorded Not on file Industry Job Start Date Occupation Not on file Not on file Not on file Travel End Travel History Travel Start No recent travel history available. Last Filed Vital Signs Time Taken Vital Sign Reading 11/10/2018 9:08 AM [employer] Blood Pressure 109/77 11/10/2018 9:08 AM [employer] Pulse 77 08/22/2018 9:37 AM CDT Temperature 37.3 C (99.1 F) 08/22/2018 9:37 AM CDT Respiratory Rate 20 - Oxygen Saturation - - Inhaled Oxygen - Concentration 11/10/2018 9:08 AM [employer] Weight 81.6 kg (180 lb) 11/10/2018 9:08 AM [employer] Height 152.4 cm (5') 11/10/2018 9:08 AM [employer] Body Mass Index 35.15 Plan of Treatment Care Team Description Date Type Specialty QianGraham, DMD [address] Room [place] [id number] [phone] iv sedation 12/09/2018 Office Visit Oral Surgery Health Maintenance Due Date Last Done Comments Cervical Cancer Scrn (3 2010 Yrs) IMM Influenza Seasonal 08/25/2018Aug to January (>/=19 yrs) Procedures Comments Procedure Name Priority Date/Time Associated Diagnosis XRAY PANOREX Routine 11/10/2018 Encounter for screening 9:20 AM [employer] for dental disorder TRICHOMONAS VAGINALIS Routine 07/07/2018 3:33 PM CDT WET MOUNT Routine 07/07/2018 Vaginal discharge 3:33 PM CDT SAMI STAIN Routine 07/07/2018 Vaginal discharge 3:33 PM CDT CHLAM/GC DNA AMPLI Routine 07/07/2018 Vaginal discharge 3:33 PM CDT XRAY SPINE LUMBOSACRAL Routine 04/28/2018 Chronic low back pain AP-LAT 4:13 PM CDT without sciatica, unspecified back pain laterality XRAY KNEE 1 OR 2 VIEWS Routine 04/28/2018 Chronic pain of multiple (LIMITED-AP/LAT) 4:13 PM CDT joints History of hip fracture XRAY HIP BILATERAL 2 Routine 04/28/2018 Chronic pain of multiple VIEWS AND AP PELVIS 4:13 PM CDT joints History of hip fracture H. PYLORI ANTIBODIES, IGG Routine 03/26/2018 Abdominal pain, 12:44 PM CDT epigastric HIV-1/HIV-2 ROUTINE Routine 03/26/2018 Annual physical exam SCREENING 10:22 AM CDT VIT D, 25-HYDROXY Routine 03/26/2018 Annual physical exam 10:22 AM CDT COMPREHENSIVE METABOLIC Routine 03/26/2018 Annual physical exam PANEL(DBIL NOT INCLUDED) 10:22 AM CDT FREE T4 Routine 03/26/2018 Annual physical exam 10:22 AM CDT HEMOGLOBIN A1C Routine 03/26/2018 Annual physical exam 10:22 AM CDT TSH Routine 03/26/2018 Annual physical exam 10:22 AM CDT LIPID PROFILE Routine 03/26/2018 Annual physical exam 10:22 AM CDT CBC/DIFF Routine 03/26/2018 Annual physical exam 10:22 AM CDT XRAY KNEE 1 OR 2 VIEWS Routine 03/26/2018 Chronic pain of multiple (LIMITED-AP/LAT) 10:00 AM CDT joints XRAY FEMUR 1 VIEW Routine 03/26/2018 Chronic pain of multiple 10:00 AM CDT joints XRAY HIP BILATERAL 3-4 Routine 03/26/2018 Chronic pain of multiple VIEWS AND AP PELVIS 10:00 AM CDT joints URINE DRUG SCREEN Routine 03/26/2018 Chronic pain of multiple 9:17 AM CDT joints UA CHEMISTRIES Routine 03/26/2018 Annual physical exam 9:17 AM CDT after 11/13/2017 Results * XRAY PANOREX (11/10/2018 9:20 AM [employer]) Impressions Performed At IMPRESSION: SMS 1. Dentition as described above. 2. Panorex is not sensitive for fracture or dislocation. 3. See dental report for details. If indicated, dedicated dental radiographs may be obtained to provide a more sensitive evaluation. Dictated By: Jr Rasmussen MD, 11/13/2018 5:46 PM I have reviewed the study and agree with the findings in this report. Signed By: Bruno Koch MD, 11/14/2018 9:03 AM Narrative Performed At EXAM:[facility] SMS INDICATIONS: dental screening COMPARISON:None. FINDINGS: Midline artifacts limit the evaluation. No fractures or TMJ dislocation is identified. There are no missing teeth.Impaction of teeth #1, #16, #17 and, #32 No dental caries is identified. No definite periapical lucency is seen. Procedure Note Interface, Rad/Mammog In - 11/14/2018 9:08 AM [employer] EXAM: [facility] INDICATIONS: dental screening COMPARISON: None. FINDINGS: Midline artifacts limit the evaluation. No fractures or TMJ dislocation is identified. There are no missing teeth. Impaction of teeth #1, #16, #17 and, #32 No dental caries is identified. No definite periapical lucency is seen. IMPRESSION IMPRESSION: 1. Dentition as described above. 2. Panorex is not sensitive for fracture or dislocation. 3. See dental report for details. If indicated, dedicated dental radiographs may be obtained to provide a more sensitive evaluation. Dictated By: Jr Rasmussen MD, 11/13/2018 5:46 PM I have reviewed the study and agree with the findings in this report. Signed By: Bruno Koch MD, 11/14/2018 9:03 AM Performing Organization Address City/State/Zipcode Phone Number SMS * TRICHOMONAS VAGINALIS (07/07/2018 3:33 PM CDT) Trich Vaginalis Negative BT DIAGNOSTIC This test utilizes FDA cleared IMMUNOLOGY APTIMA Trichomonasvaginalis Assay by TMA from [employer] for qualitative nucleic acid amplification test (NAAT) for the detection of ribosome RNA (rRNA) from Trichomonas vaginalis. SPEC Endovervical M3 ([facility]) DESCRIPTION Specimen Cervix Performing Organization Address [facility] Phone Number MISYS BT DIAGNOSTIC IMMUNOLOGY M3 ([facility]) * CHLAM/GC DNA AMPLI (07/07/2018 3:33 PM CDT) Chlamydia trach Negative BT DIAGNOSTIC IMMUNOLOGY N gonorrhoeae Negative BT DIAGNOSTIC This test utilizes [employer] Apt[employer] Combo 2 Assay for target amplification of rRNA for the qualitative detection of Chlamydia trachomatis and Neisseria gonorrhoeae. Spec Endovervical M3 ([facility]) Description Specimen Cervix - Endocervical Swab Performing Organization Address [facility] Phone Number MISYS BT DIAGNOSTIC IMMUNOLOGY M3 ([facility]) * WET MOUNT (07/07/2018 3:33 PM CDT) Spec Vaginal M3 ([facility]) Description Order Comments None M3 ([facility]) Exam Bacteria present M2 ([facility]) Epithelial cells Clue cells present Report Status Final 07/07/2018 M2 ([facility]) Specimen Genital, vaginal - Vaginal Performing Organization Address [facility] Phone Number MISYS M3 ([facility]) M2 ([facility]) * SAMI STAIN (07/07/2018 3:33 PM CDT) Spec Vaginal M3 ([facility]) Description Order Comments None M3 ([facility]) Direct Exam No fungus seen by SAMI M2 ([facility]) Report Status Final 07/07/2018 M2 ([facility]) Specimen Genital, vaginal - Vaginal Performing Organization Address [facility] Phone Number MISYS M3 ([facility]) M2 ([facility]) * XRAY HIP BILATERAL 2 VIEWS AND AP PELVIS (04/28/2018 4:13 PM CDT) Impressions Performed At IMPRESSION: SMS 1.Unchanged appearance [...] MD, 04/29/2018 8:52 AM Performing Organization Address [facility] Phone Number SMS * XRAY KNEE 1 OR 2 VIEWS (LIMITED-AP/LAT) (04/28/2018 4:13 PM CDT) Only the most recent of 2 results [...] AM Narrative Performed At EXAM: RIGHTKNEE RADIOGRAPHS [facility] HISTORY:Knee pain COMPARISON: Knee radiograph on 03/26/2018 [...] MD, 04/29/2018 8:53 AM Performing Organization Address [facility] Phone Number SMS * XRAY SPINE LUMBOSACRAL AP-LAT (04/28/2018 4:13 PM CDT) Impressions Performed At IMPRESSION: SMS No acute [...] MD, 04/29/2018 8:53 AM Performing Organization Address City/[facility] Phone Number [facility] * H. PYLORI ANTIBODIES, IGG (03/26/2018 12:44 PM CDT) H. pylori, IgG, 4.91 LABORATORY Abs Reference range: 0.00 to 0.79 [employer] OF Unit: Index Value JOCELYN (note) Nega tive <0.80 Equi vocal0.80 - 0.89 Posi tive >0.89 Specimen Blood bag - BLOOD Performing Organization Address City/[facility] Phone Number [facility] [address] [place] [address] JOCELYN 145 * VIT D, 25-HYDROXY (03/26/2018 10:22 AM CDT) Vit D, 24.3 (L) 30 - 100 ng/mL BT DIAGNOSTIC 25-Hydroxy Comment: IMMUNOLOGY Vitamin D deficiency has been defined by the [place] of [employer] and Endocrine Society guideline as a level of serum 25-OH Vitamin D less than 20 ng/mL. The Endocrine Society further defines Vitamin D insufficiency as a level between 21 and 29 ng/mL and sufficiency as a level between 30 and 100 ng/mL. Performing Organization Address City/[facility] Phone Number MISYS BT DIAGNOSTIC IMMUNOLOGY * HIV-1/HIV-2 ROUTINE SCREENING (03/26/2018 10:22 AM CDT) HIV-1/HIV-2 Negative NEG BT MAIN-STATION 3 Performing Organization Address [facility] Phone Number MISYS BT MAIN-STATION 3 * HEMOGLOBIN A1C (03/26/2018 10:22 AM CDT) Hemoglobin A1c 5.8 4.3 - 6.1 % BT DIAGNOSTIC IMMUNOLOGY Est Average 119.8 mg/dL BT DIAGNOSTIC Gluc IMMUNOLOGY Specimen Blood Performing Organization Address [facility] Phone Number MISYS BT DIAGNOSTIC IMMUNOLOGY * COMPREHENSIVE METABOLIC PANEL(DBIL NOT INCLUDED) (03/26/2018 10:22 AM CDT) Albumin 4.5 3.7 - 5.3 g/dL BT [...] mL/min/1.73 m2 BT MAIN-STATION 4 GFR, Estim, >60 mL/min/1.73 m2 BT MAIN-STATION Afr-Am 4 Anion Gap 7 BT MAIN-STATION 4 Specimen Blood Performing Organization Address City/[facility] Phone Number MISYS BT MAIN-STATION 4 * TSH (03/26/2018 10:22 AM CDT) TSH 0.68 0.45 - 5.33 uIU/mL BT MAIN-STATION 4 Specimen Blood Performing Organization Address [facility] Phone Number MISYS BT MAIN-STATION 4 * FREE T4 (03/26/2018 10:22 AM CDT) Free T4 0.76 0.61 - 1.12 ng/dl BT MAIN-STATION Comment: 4 females: 1st Trimester-0.52-1.10 ng/dL 2nd Trimester=0.45-0.99 ng/dL 3rd Trimester=0.48-0.95 ng/dL Specimen Blood Performing Organization Address [facility] Phone Number MISYS BT MAIN-STATION 4 * LIPID PROFILE (03/26/2018 10:22 AM CDT) Cholesterol 181 mg/dL BT MAIN-STATION Comment: 4 REFERENCE RANGE: Desirable: <200 mg/dL Borderline: 200-240 mg/dL High Risk: >240 mg/dL Triglyceride 91 <150 mg/dL BT MAIN-STATION Comment: 4 REFERENCE RANGE: Normal: <150 mg/dL Borderline High: 150-199 mg/dL High: 200-499 mg/dL Very High: >ug=657 mg/dL HDL 33 mg/dL BT MAIN-STATION Comment: 4 Increased CHD risk: <40 mg/dL Decreased CHD risk: >60 mg/dL LDL 130 mg/dL BT MAIN-STATION Comment: 4 REFERENCE RANGE: Optimal: <100 mg/dL Near Optimal: 100-129 mg/dL Borderline High: 130-159 mg/dL High: 160-189 mg/dL Very High: >vc=333 mg/dL Specimen Blood Performing Organization Address [facility] Phone Number MISYS BT MAIN-STATION 4 * CBC/DIFF (03/26/2018 10:22 AM CDT) WBC 5.8 4.5 - 11.0 K/uL BT [...] 400 K/uL BT MAIN-STATION 2 Mean Platelet 11.7 9.4 - 12.4 fL BT MAIN-STATION Volume 2 Percent NRBC 0.0 BT MAIN-STATION 2 [...] 0.08 K/uL BT MAIN-STATION 2 Absol Immat 0.01 0.00 - 0.03 K/uL BT MAIN-STATION Gran 2 Specimen Blood Performing Organization Address City/State/Zipcode Phone Number MISYS BT MAIN-STATION 2 * XRAY FEMUR 1 VIEW (03/26/2018 10:00 AM CDT) Impressions Performed At IMPRESSION: SMS 1. Status [...] MD, 03/26/2018 11:17 AM Performing Organization Address City/State/Zipcode Phone Number SMS * XRAY HIP BILATERAL 3-4 VIEWS AND AP PELVIS (03/26/2018 10:00 AM CDT) Impressions Performed At IMPRESSION: SMS 1. Status [...] HIP BILATERAL 3-4 VIEWS AND AP PELVIS [facility] INDICATION: 27 y.o. female-left thigh pain hx [...] MD, 03/26/2018 11:17 AM Performing Organization Address City/State/Zipcode Phone Number SMS * UA CHEMISTRIES (03/26/2018 9:17 AM CDT) Color Yellow M2 ([facility]) Clarity Clear M2 ([facility]) Spec Friant 1.020 1.001 - 1.035 M2 ([facility]) pH 6.0 5 - 8 M2 ([facility]) Protein Negative NEG M2 ([facility]) Glucose Negative NEG M2 ([facility]) Ketone Negative NEG M2 ([facility]) Bilirubin Negative NEG M2 ([facility]) Nitrate Negative NEG M2 ([facility]) Urobilinogen 0.2 0.2 - 1.0 EU/dL M2 ([facility]) Leukocyte Negative NEG M2 ([facility]) Blood Negative NEG M2 ([facility]) Specimen Urine Performing Organization Address [facility] Phone Number MISYS M2 ([facility]) * URINE DRUG SCREEN (03/26/2018 9:17 AM CDT) Amphetamine Negative NEG BT MAIN-STATION Comment: 1 Calibrated Standard: D-Methamphetamine Positive if urine level >ek=0797 ng/mL Test performed on [id number] using [employer] Immunoassay Barbiturate Negative NEG BT MAIN-STATION Comment: 1 Calibrated Standard: Secobarbital Positive if urine level is >ih=690 ng/mL Test performed on [id number] using [employer] Immunoassay Benzodiazepine Positive (A) NEG BT MAIN-STATION Comment: 1 Calibrated Standard: Lormethazepam Positive if urine level is >zz=368 ng/mL Test performed on [id number] using [employer] Immunoassay Cannabinoid Negative NEG BT MAIN-STATION Comment: 1 Calibrated Standard: 11 nor-delta(9)-THC carboxylic a Positive if urine level >or=50 Test performed on [id number] using [employer] Immunoassay Cocaine Negative NEG BT MAIN-STATION Comment: 1 Calibrated Standard: Benzoylecgonine Positive if urine level >qr=366 Test performed on [id number] using [employer] Immunoassay Opiate, Ur Negative NEG BT MAIN-STATION Comment: 1 Calibrated Standard: Morphine Positive if urine level >fx=881 Test performed on [id number] using [employer] Immunoassay PCP Negative NEG BT MAIN-STATION Comment: 1 Calibrated Standard: Phencyclidine Positive if urine level >or=25 Test performed on [id number] using [employer] Immunoassay Urine Toxicology Screen results are to be used only for Medical purposes. Specimen Urine Performing Organization Address City/State/Zipcode Phone Number MISYS BT MAIN-STATION 1 after 11/13/2017 Insurance Type Payer Benefit Subscriber ID Effective Phone Address Plan / Dates Group [employer] [employer] [place] x[place]x 2018- [phone] [address] [employer] FAMILY 2019 [id number] PLANNING [place], [place] [address] [employer] PLAN [employer] xxxxxx 2018-[id number] [place] [address] [place] [address] (Work) Advance Directives For more information, please contact: [address] [address] Date Inactivated Comments Code Status Date Activated 12/02/2011 2:51 PM Full Code 11/28/2011 11:30 AM
== END 2018-11-14 17:32 | disposition home or self-care (01) ==
LOC: FSED 15:52
DX: R50.9 Fever, unspecified (principal); R05 Cough; J11.1 Influenza due to unidentified influenza virus with other respiratory manifestations
CPT/HCPCS: 87400; 99283

== ENCOUNTER 2018-12-14 15:54 | Emergency (ER) | payer SELFPAY ==
[~2018-12-14] VITALS: Ht 152.4 cm; Wt 83.0 kg
--- OUTSIDE RECORDS SUMMARY | 2018-12-14 15:57 | XMS REPORT | Clinical Summary ---
Author Author [facility] Address Unknown Phone Unavailable Care Team Providers Care Manager Pediatric Name Role Phone Sharpless PCP Allergies Comments [...] Not on file Results Not on fileafter 12/13/2017 Insurance Payer Benefit Subscriber ID Type Phone Address Plan / Group MEDICAID MEDICAID xxxxxxxxx Medicaid OF [place]
--- OUTSIDE RECORDS SUMMARY | 2018-12-14 15:57 | XMS REPORT | Clinical Summary ---
Author Author [facility] Organization [facility] Address Unknown Phone Unavailable Care Team Providers Care Cook Helper Meat Name Role Phone Bee Ortiz PCP Allergies Comments Active Allergy Reactions Severity Noted Date Tramadol Itching 03/26/2018 Medications End Date Status Medication Sig Dispensed Refills Start Date Active pyridoxine (VITAMIN B-6) Take 1 Tab by 60 Tab 11 100 mg tabletIndications: mouth 2 times 2 Hyperemesis gravidarum daily. Active ergocalciferol (VITAMIN Take 1 12 capsule [...] daily as needed for Muscle Spasms. Active naproxen (NAPROSYN) 500 Take 1 tablet 30 tablet 0 mg tabletIndications: by mouth 2 8 Chronic dental pain times daily as needed for Pain. Active lamoTRIgine (LAMICTAL) Take 1 tablet 30 tablet 2 200 mg tabletIndications: by mouth 9 Schizoaffective disorder, daily. depressive type Active OLANZapine (ZYPREXA) 20 Take 0.5 90 tablet 0 mg tabletIndications: tablet po 9 Schizoaffective disorder, bid. depressive type Active traZODone (DESYREL) 100 Take 2 180 tablet 0 mg tabletIndications: tablets by 9 Schizoaffective disorder, mouth at depressive type bedtime nightly. Active clonazePAM (KLONOPIN) 0.5 Take 1 tablet 60 tablet 2 mg tabletIndications: by mouth 2 9 Schizoaffective disorder, times daily depressive type as needed for Anxiety. Active chlorhexidine (PERIDEX) Swish with 473 mL 0 0.12 % mouth 1/2 oz of 9 washIndications: Caries solution in mouth for 30 seconds and spit. Use twice daily.. Active acetaminophen-codeine Take 1 tablet 30 tablet 0 (TYLENOL/CODEINE #3) by mouth 9 300-30 mg per every 4 hours tabletIndications: Caries as needed for Pain. Active ibuprofen (MOTRIN) 600 mg Take 1 tablet 30 tablet 0 tabletIndications: Caries by mouth 9 every 6 hours as needed for Pain. 12/05/2018 Discontinued ALPRAZolam (XANAX) 0.5 mg TAKE ONE 0 tablet TABLET BY 8 MOUTH THREE TIMES DAILY 08/08/2018 Discontinued lamoTRIgine (LAMICTAL) Take 100 mg [...] 4 Take 1 tablet 30 tablet 0 mg tabletIndications: by mouth 3 8 Chronic [...] mouth 2 times daily for 10 days. 12/05/2018 Discontinued traZODone (DESYREL) 100 Take 1 tablet 30 tablet 1 mg tabletIndications: by mouth at 8 Schizoaffective disorder, bedtime depressive type nightly. 12/05/2018 Discontinued lamoTRIgine (LAMICTAL) 25 Take 1 tablet 42 tablet 0 mg tabletIndications: po q day for 8 Schizoaffective disorder, 2 weeks, depressive type increase to 2 tablets po q day starting 3, 4 week. 08/22/2018 Discontinued OLANZapine (ZYPREXA) 20 Take 0.5 30 tablet 0 08/08/201 mg tabletIndications: tablet po 8 Schizoaffective disorder, bid. depressive type 08/22/2018 Discontinued clonazePAM (KLONOPIN) 1 Take 1 tablet 20 tablet 0 08/08/201 mg tabletIndications: po prn 8 Schizoaffective disorder, agitation, depressive type max 1 tablet in 24 hrs. 12/05/2018 Discontinued lamoTRIgine (LAMICTAL) Take 1 tablet 30 tablet 1 100 mg tabletIndications: by mouth 8 Schizoaffective disorder, daily. depressive type 12/05/2018 Discontinued traZODone (DESYREL) 100 Take 2 60 tablet 1 mg tabletIndications: tablets by 8 Schizoaffective disorder, mouth at depressive type bedtime nightly. 12/05/2018 Discontinued OLANZapine (ZYPREXA) 20 Take 0.5 30 tablet 1 mg tabletIndications: tablet po 8 Schizoaffective disorder, bid. depressive type 12/05/2018 Discontinued clonazePAM (KLONOPIN) 0.5 Take 1 tablet 60 tablet 1 mg tabletIndications: by mouth 2 8 Schizoaffective disorder, times daily depressive type as needed for Anxiety. 12/12/2018 amoxicillin (AMOXIL) 500 Take 1 9 capsule 0 mg capsuleIndications: capsule by 9 Caries mouth 3 times daily for 3 days. Active Problems Problem Noted Date Schizophrenia 03/26/2018 Chronic pain of multiple joints 03/26/2018 Hyperemesis gravidarum 12/01/2011 Chest pain 11/28/2011 as incidental finding 11/08/2011 Vomiting 11/08/2011 Pelvic pain complicating 11/08/2011 UTI in 11/08/2011 Encounters Care Team Description Date Type Specialty 12/14/2018 Travel Emilie Estrada RN 12/14/2018 Nurse Triage Graham Laughlin DMD Gilbert, Harry D, DDS Caries (Primary Dx) 12/09/2018 Office Visit Oral Surgery Maylin Morgan MD Schizoaffective disorder, depressive type 12/05/2018 Office Visit Psychiatry 12/05/2018 Travel Graham Laughlin DMD Encounter for screening for dental disorder (Primary Dx) 11/10/2018 Office Visit Oral Surgery 11/10/2018 Travel Maylin Morgan MD Schizoaffective disorder, depressive type (Primary Dx) 08/22/2018 Office Visit Psychiatry Davis Castillo MD Kaikai, Fatmata B, PA Patient left without being seen (Primary Dx) 08/21/2018 Office Visit Family Practice Dean Gonzalez MD Chronic pain of multiple joints 08/21/2018 Refill [facility] Jj Caraballo DMD Dental caries (Primary [...] pain laterality; Exercise counseling 04/28/2018 Office Visit [facility] Jj Caraballo DMD Pericoronitis (Primary Dx) 04/09/2018 Office Visit Dentistry Chronic pain of multiple joints 03/26/2018 Ancillary Radiology Procedure Bee Ortiz PA Annual physical exam (Primary Dx); Chronic pain of multiple joints; Abdominal pain, epigastric; Schizophrenia, unspecified type 03/26/2018 Office Visit Family Practice Bee Ortiz PA Annual physical exam 03/26/2018 Orders Only Family Practice after 12/13/2017 Family History Medical History Relation Name Comments [...] Vital Signs Time Taken Vital Sign Reading 12/09/2018 10:21 AM SIGN LANGUAGE TEACHER Blood Pressure 113/73 12/09/2018 10:21 AM SIGN LANGUAGE TEACHER Pulse 75 12/09/2018 10:21 AM SIGN LANGUAGE TEACHER Temperature 37.1 C (98.8 F) 12/09/2018 10:21 AM SIGN LANGUAGE TEACHER Respiratory Rate 21 - Oxygen Saturation - - Inhaled Oxygen - Concentration 12/09/2018 10:21 AM SIGN LANGUAGE TEACHER Weight 83 kg (183 lb) 12/09/2018 10:21 AM SIGN LANGUAGE TEACHER Height 152.4 cm (5') 12/09/2018 10:21 AM SIGN LANGUAGE TEACHER Body Mass Index 35.74 Plan of Treatment Care Team Description Date Type Specialty Rock Vizcarra, DDS [address] [address] follow up post IV sedation 12/19/2018 Office Visit Oral Surgery Health Maintenance Due Date Last Done Comments Cervical Cancer Scrn (3 2010 Yrs) IMM Influenza Seasonal 08/25/2018Aug to January (>/=19 yrs) Procedures Comments Procedure Name Priority Date/Time Associated Diagnosis POC URINE Routine 12/09/2018 Caries 10:15 AM SIGN LANGUAGE TEACHER XRAY PANOREX Routine 11/10/2018 Encounter for screening 9:20 AM SIGN LANGUAGE TEACHER for dental disorder TRICHOMONAS VAGINALIS Routine 07/07/2018 [...] Annual physical exam 9:17 AM CDT after 12/13/2017 Results * POC URINE (12/09/2018 10:15 AM SIGN LANGUAGE TEACHER) POC Neg - Neg Pass - Pass Control * XRAY PANOREX (11/10/2018 9:20 AM SIGN LANGUAGE TEACHER) Impressions Performed At IMPRESSION: SMS 1. Dentition [...] Interface, Rad/Mammog In - 11/14/2018 9:08 AM SIGN LANGUAGE TEACHER EXAM: Panorex INDICATIONS: dental screening COMPARISON: None. [...] IMMUNOLOGY APTIMA Trichomonasvaginalis Assay by TMA from [employer] for qualitative nucleic acid amplification test (NAAT) for the detection of ribosome RNA (rRNA) from Trichomonas vaginalis. SPEC Endovervical M3 ([facility]) DESCRIPTION Specimen Cervix Performing Organization Address City/State/Zipcode Phone Number MISYS BT DIAGNOSTIC IMMUNOLOGY M3 ([facility]) * CHLAM/GC DNA AMPLI (07/07/2018 3:33 PM CDT) Chlamydia trach Negative BT DIAGNOSTIC IMMUNOLOGY N gonorrhoeae Negative BT DIAGNOSTIC This test utilizes [employer] IMMUNOLOGY Aptima Combo 2 Assay for target amplification of rRNA for the qualitative detection of Chlamydia trachomatis and Neisseria gonorrhoeae. Spec Endovervical M3 ([facility]) Description Specimen Cervix - Endocervical Swab Performing Organization Address [facility] Phone Number MISYS BT DIAGNOSTIC IMMUNOLOGY M3 ([facility]) * WET MOUNT (07/07/2018 3:33 PM CDT) Spec Vaginal M3 ([facility]) Description Order Comments None M3 ([facility]) Exam Bacteria present M2 ([facility]) Epithelial cells Clue cells present Report Status Final 07/07/2018 M2 ([facility]) Specimen Genital, vaginal - Vaginal Performing Organization Address [facility] Phone Number MISYS M3 ([facility]) M2 ([facility]) * SAMI STAIN (07/07/2018 3:33 PM CDT) Spec Vaginal M3 ([facility]) Description Order Comments None M3 ([facility]) Direct Exam No fungus seen by SAMI M2 ([facility]) Report Status Final 07/07/2018 M2 ([facility]) Specimen Genital, vaginal - Vaginal Performing Organization Address [facility] Phone Number MISYS M3 ([facility]) M2 ([facility]) * XRAY HIP BILATERAL 2 VIEWS [...] MD, 04/29/2018 8:52 AM Performing Organization Address [facility] Phone Number SMS * XRAY KNEE 1 [...] AM Narrative Performed At EXAM: RIGHTKNEE RADIOGRAPHS [facility] HISTORY:Knee pain COMPARISON: Knee radiograph [...] MD, 04/29/2018 8:53 AM Performing Organization Address [facility] Phone Number SMS * XRAY SPINE LUMBOSACRAL AP-LAT (04/28/2018 4:13 PM CDT) Impressions Performed At IMPRESSION: [facility] No acute osseous lesion. Dictated By: Adan [...] MD, 04/29/2018 8:53 AM Performing Organization Address [facility] Phone Number SMS * H. PYLORI ANTIBODIES, IGG (03/26/2018 12:44 PM CDT) H. pylori, IgG, 4.91 LABORATORY Abs Reference range: 0.00 to 0.79 [employer] Unit: Index Value JOCELYN (note) Nega tive <0.80 Equi vocal0.80 - 0.89 Posi tive >0.89 Specimen Blood bag - BLOOD Performing Organization Address [facility] Phone Number [employer] [address] [place] [address] JOCELYN 145 * VIT D, 25-HYDROXY (03/26/2018 10:22 AM CDT) Vit D, 24.3 (L) 30 - 100 ng/mL BT DIAGNOSTIC 25-Hydroxy Comment: IMMUNOLOGY Vitamin D deficiency has been defined by the [place] [employer] and Endocrine Society guideline as a level of serum 25-OH Vitamin D less than 20 ng/mL. The Endocrine Society further defines Vitamin D insufficiency as a level between 21 and 29 ng/mL and sufficiency as a level between 30 and 100 ng/mL. Performing Organization Address [facility] Phone Number [employer] BT DIAGNOSTIC IMMUNOLOGY * HIV-1/HIV-2 ROUTINE SCREENING (03/26/2018 10:22 AM CDT) HIV-1/HIV-2 Negative NEG BT MAIN-STATION 3 Performing Organization Address [facility] Phone Number MISYS BT MAIN-STATION 3 * HEMOGLOBIN A1C (03/26/2018 10:22 AM CDT) Hemoglobin A1c 5.8 4.3 - 6.1 % BT DIAGNOSTIC IMMUNOLOGY Est Average 119.8 mg/dL BT DIAGNOSTIC Gluc IMMUNOLOGY Specimen Blood Performing Organization Address [facility] Phone Number MISYS BT DIAGNOSTIC IMMUNOLOGY * [...] MAIN-STATION 4 Specimen Blood Performing Organization Address [facility] Phone Number MISYS BT MAIN-STATION 4 * TSH (03/26/2018 10:22 AM CDT) TSH 0.68 0.45 - 5.33 uIU/mL BT MAIN-STATION 4 Specimen Blood Performing Organization Address [facility] Phone Number MISYS BT MAIN-STATION 4 * FREE T4 (03/26/2018 10:22 AM CDT) Free T4 0.76 0.61 - 1.12 ng/dl BT MAIN-STATION Comment: 4 females: 1st Trimester-0.52-1.10 ng/dL 2nd Trimester=0.45-0.99 ng/dL 3rd Trimester=0.48-0.95 ng/dL Specimen Blood Performing Organization Address [facility] Phone Number MISYS BT MAIN-STATION 4 * LIPID PROFILE (03/26/2018 10:22 AM CDT) Cholesterol 181 mg/dL BT MAIN-STATION Comment: 4 REFERENCE RANGE: Desirable: <200 mg/dL Borderline: 200-240 mg/dL High Risk: >240 mg/dL Triglyceride 91 <150 mg/dL BT MAIN-STATION Comment: 4 REFERENCE RANGE: Normal: <150 mg/dL Borderline High: 150-199 mg/dL High: 200-499 mg/dL Very High: >hb=806 mg/dL HDL 33 mg/dL BT MAIN-STATION Comment: 4 Increased CHD risk: <40 mg/dL Decreased CHD risk: >60 mg/dL LDL 130 mg/dL BT MAIN-STATION Comment: 4 REFERENCE RANGE: Optimal: <100 mg/dL Near Optimal: 100-129 mg/dL Borderline High: 130-159 mg/dL High: 160-189 mg/dL Very High: >bf=011 mg/dL Specimen Blood Performing Organization Address [facility] Phone Number MISYS BT MAIN-STATION 4 * [...] MD, 03/26/2018 11:17 AM Performing Organization Address [facility] Phone Number SMS * UA CHEMISTRIES (03/26/2018 9:17 AM CDT) Color Yellow M2 ([facility]) Clarity Clear M2 ([facility]) Spec [place] 1.020 1.001 - 1.035 M2 ([facility]) pH 6.0 5 - 8 M2 ([facility]) Protein Negative NEG M2 ([facility]) Glucose Negative NEG M2 ([facility]) Ketone Negative NEG M2 ([facility]) Bilirubin Negative NEG M2 ([facility]) Nitrate Negative NEG M2 ([facility]) Urobilinogen 0.2 0.2 - 1.0 EU/dL M2 ([facility]) Leukocyte Negative NEG M2 ([facility]) Blood Negative NEG M2 ([facility]) Specimen Urine Performing Organization Address [facility] Phone Number MISYS M2 ([facility]) * URINE DRUG SCREEN (03/26/2018 9:17 AM CDT) Amphetamine Negative NEG BT MAIN-STATION Comment: 1 Calibrated Standard: D-Methamphetamine Positive if urine level >zm=8475 ng/mL Test performed on [id number] using EMIT Immunoassay Barbiturate Negative NEG BT MAIN-STATION Comment: 1 Calibrated Standard: Secobarbital Positive if urine level is >hu=139 ng/mL Test performed on [id number] using [employer] Immunoassay Benzodiazepine Positive (A) NEG BT MAIN-STATION Comment: 1 Calibrated Standard: Lormethazepam Positive if urine level is >qb=379 ng/mL Test performed on [id number] using [employer] Immunoassay Cannabinoid Negative NEG BT MAIN-STATION Comment: 1 Calibrated Standard: 11 nor-delta(9)-THC carboxylic a Positive if urine level >or=50 Test performed on [id number] using [employer] Immunoassay Cocaine Negative NEG BT MAIN-STATION Comment: 1 Calibrated Standard: Benzoylecgonine Positive if urine level >it=561 Test performed on [id number] using [employer] Immunoassay Opiate, Ur Negative NEG BT MAIN-STATION Comment: 1 Calibrated Standard: Morphine Positive if urine level >ob=109 Test performed on [id number] using [employer] Immunoassay PCP Negative NEG BT MAIN-STATION Comment: 1 Calibrated Standard: Phencyclidine Positive if urine level >or=25 Test performed on [id number] using [employer] Immunoassay Urine Toxicology Screen results are to be used only for Medical purposes. Specimen Urine Performing Organization Address [facility]/State/Zipcode Phone Number MISYS BT MAIN-STATION 1 after 12/13/2017 Insurance Type Payer Benefit Subscriber ID Effective Phone Address Plan / Dates Group [place] [employer] [place] xxxxxx 2018- [phone] IN[employer] FAMILY 2019 [id number] PLANNING [place], [place] [id number] [employer] PLAN [employer] PLAN xxxxxx 2018-[address] [place] [address] [place] [address] (Work) Advance Directives For more information, please contact: [address] [address] Date Inactivated Comments Code Status Date Activated 12/02/2011 2:51 PM Full Code 11/28/2011 11:30 AM
[2018-12-14] MEDS ORDERED: KETOROLAC TROME10 MG PO (16:34)
[2018-12-14] MEDS ORDERED: PENICILLIN V P250 MG PO (16:34)
== END 2018-12-14 16:50 | disposition home or self-care (01) ==
LOC: FSED 15:54
DX: K08.89 Other specified disorders of teeth and supporting structures (principal); H92.03 Otalgia, bilateral
CPT/HCPCS: 99282

== ENCOUNTER 2019-01-26 09:09 | Emergency (ER) | payer SELFPAY ==
[~2019-01-26] VITALS: Ht 180.3 cm; Wt 83.0 kg
[~2019-01-26 09:09] MED LIST: KETOROLAC TROME10 MG PO; PENICILLIN V P250 MG PO
--- OUTSIDE RECORDS SUMMARY | 2019-01-26 09:12 | XMS REPORT | Clinical Summary ---
Author Author [facility] Organization [facility] Address Unknown Phone Unavailable Care Team Providers Care Catia Designer Name Role Phone Bee Ortiz PCP Allergies [...] joints, History of hip daily. fracture Active tiZANidine (ZANAFLEX) 4 Take 2 150 tablet 0 mg tabletIndications: tablets by 8 Chronic pain of multiple mouth 3 times joints daily as needed for Muscle Spasms. Active lamoTRIgine (LAMICTAL) Take 1 tablet 30 tablet 2 200 mg tabletIndications: by mouth 9 Schizoaffective disorder, daily. depressive type Active OLANZapine (ZYPREXA) 20 Take 0.5 90 tablet 0 mg tabletIndications: tablet po 9 Schizoaffective disorder, bid. depressive type Active traZODone (DESYREL) 100 Take 2 180 tablet 0 01/11/201 mg tabletIndications: tablets by 9 Schizoaffective disorder, [...] (AMOXIL) 500 Take 1 21 capsule 0 05/16/201 mg capsuleIndications: capsule by 8 Pericoronitis mouth 3 times daily for 7 days. 04/28/2018 Discontinued naproxen (NAPROSYN) 500 Take 1 tablet 30 tablet 0 201 mg tabletIndications: by mouth 2 8 Pericoronitis times daily as needed for Pain. 08/08/2018 Discontinued traZODone (DESYREL) 100 Take 1-2 tabs 50 tablet 3 mg tabletIndications: at bedtime as 8 History of hip fracture, needed for Undifferentiated insomnia. schizophrenia 01/09/2019 Discontinued ibuprofen (MOTRIN) 800 mg Take 1 tablet 90 tablet 5 tabletIndications: by mouth 8 Chronic pain of multiple every 8 hours joints, History of hip as needed for fracture Pain. 07/17/2018 clarithromycin (BIAXIN) Take 1 tablet 20 [...] (ZYPREXA) 20 Take 0.5 30 tablet 0 201 mg tabletIndications: tablet po 8 Schizoaffective disorder, bid. depressive type 08/22/2018 Discontinued clonazePAM (KLONOPIN) 1 Take 1 tablet 20 tablet 0 201 mg tabletIndications: po prn 8 Schizoaffective disorder, agitation, depressive type max 1 tablet in 24 hrs. 01/09/2019 Discontinued naproxen (NAPROSYN) 500 Take 1 tablet 30 tablet 0 08/12/201 mg tabletIndications: by mouth 2 8 Chronic dental pain times daily as needed for Pain. 12/05/2018 Discontinued lamoTRIgine (LAMICTAL) Take 1 tablet [...] 3 days. Active Problems Problem Noted Date Dietary counseling for Above Normal BMI 01/09/2019 Breast pain in female 01/09/2019 Overview: Both upper outer quadrants Schizophrenia 03/26/2018 Chronic pain of multiple joints 03/26/2018 Hyperemesis gravidarum 12/01/2011 Chest pain 11/28/2011 as incidental finding 11/08/2011 Vomiting 11/08/2011 Pelvic pain complicating 11/08/2011 UTI in 11/08/2011 Encounters Care Team Description Date Type Specialty Bee Ortiz PA Breast pain in female 01/13/2019 Lab Appointment Lab Corina James PA Breast pain in female (Primary Dx); Dietary counseling for Above Normal BMI; BMI 35.0-35.9,adult 01/09/2019 Office Visit Family Practice 01/09/2019 Travel Rock Vizcarra, DDS Rakesh Rae DMD Dental caries (Primary Dx) 12/19/2018 Office Visit Oral Surgery 12/14/2018 Travel Emilie Estrada RN 12/14/2018 Nurse Triage Graham Laughlin, Rock Nevarez, DDS Caries (Primary Dx) 12/09/2018 Office Visit [...] Chronic pain of multiple joints 08/21/2018 Refill [facility] Jj Caraballo DMD Dental caries [...] exam 03/26/2018 Orders Only Family Practice after 01/25/2018 Family History Medical History Relation Name Comments Cancer Father colon Cancer Maternal Aunt breast Hypertension Mother Lipids Mother Cancer Paternal skin cancer Grandmother Relation Name Status Comments Father Maternal Aunt Alive Mother Alive Other Other paternal Great Aunt unknown cancer and Maternal graet Aunt cervic al cancer Paternal Grandmother Social History Date Tobacco Use Types Packs/Day Years Used Never Smoker Smokeless Tobacco: Never Used Alcohol Use Drinks/Week oz/Week Comments No Sex Assigned at Date Recorded Not on file Industry Job Start Date Occupation Not on file Not on file Not on file Travel End Travel History Travel Start No recent travel history available. Last Filed Vital Signs Time Taken Vital Sign Reading 01/09/2019 8:43 AM SKI TOP TRIMMER Blood Pressure 110/68 01/09/2019 8:43 AM SKI TOP TRIMMER Pulse 76 01/09/2019 8:43 AM SKI TOP TRIMMER Temperature 37.2 C (99 F) 01/09/2019 8:43 AM SKI TOP TRIMMER Respiratory Rate 20 - Oxygen Saturation - - Inhaled Oxygen - Concentration 01/09/2019 8:43 AM SKI TOP TRIMMER Weight 83 kg (183 lb) 01/09/2019 8:43 AM SKI TOP TRIMMER Height 152.4 cm (5') 01/09/2019 8:43 AM SKI TOP TRIMMER Body Mass Index 35.74 Plan of Treatment Care Team Description Date Type Specialty Bee Ortiz PA [address] [facility] [place] [address] [phone] 01/28/2019 Hospital Radiology Encounter Maylin Morgan MD [address] [place] [address] [phone] 03/18/2019 Office Visit Psychiatry Health Maintenance Due Date Last Done Comments Cervical Cancer Scrn (3 2010 Yrs) IMM Influenza Seasonal 08/25/2018 Oct to January (>/=19 yrs) Goals Goal Patient Associated Recent Progress Patient-Stat Author Goal Type Problems ed? Eat Healthy Lifestyle No Karen Carlson, HANDBOOK WRITER Procedures Comments Procedure Name Priority Date/Time Associated Diagnosis TEST Routine 01/13/2019 Breast pain in female 8:27 AM SKI TOP TRIMMER POC URINE Routine 12/09/2018 Caries 10:15 AM SKI TOP TRIMMER XRAY PANOREX Routine 11/10/2018 Encounter for screening 9:20 AM SKI TOP TRIMMER for dental disorder TRICHOMONAS VAGINALIS Routine 07/07/2018 [...] Annual physical exam 9:17 AM CDT after 01/25/2018 Results * TEST (01/13/2019 8:27 AM SKI TOP TRIMMER) Negative M3 ([facility]) Specimen Urine Performing Organization Address City/State/Zipcode Phone Number MISYS M3 ([facility]) * POC URINE (12/09/2018 10:15 AM SKI TOP TRIMMER) POC Neg - Neg Pass - Pass Control * XRAY PANOREX (11/10/2018 9:20 AM SKI TOP TRIMMER) Impressions Performed At IMPRESSION: SMS 1. Dentition [...] Interface, Rad/Mammog In - 11/14/2018 9:08 AM SKI TOP TRIMMER EXAM: Panorex INDICATIONS: dental screening COMPARISON: None. [...] MD, 11/14/2018 9:03 AM Performing Organization Address [facility] Phone Number SMS * TRICHOMONAS VAGINALIS (07/07/2018 3:33 PM CDT) Trich Vaginalis Negative BT DIAGNOSTIC This test utilizes FDA cleared IMMUNOLOGY APTIMA Trichomonasvaginalis Assay by TMA from [employer] for qualitative nucleic acid amplification test (NAAT) for the detection of ribosome RNA (rRNA) from Trichomonas vaginalis. SPEC Endovervical M3 ([facility]) DESCRIPTION Specimen Cervix Performing Organization Address [facility] Phone Number MISYS BT DIAGNOSTIC IMMUNOLOGY M3 ([facility]) * CHLAM/GC DNA AMPLI (07/07/2018 3:33 PM CDT) Chlamydia trach Negative BT DIAGNOSTIC IMMUNOLOGY N gonorrhoeae Negative BT DIAGNOSTIC This test utilizes [employer] IMMUNOLOGY Aptima Combo 2 Assay for target amplification of rRNA for the qualitative detection of Chlamydia trachomatis and Neisseria gonorrhoeae. Spec Endovervical M3 ([facility]) Description Specimen Cervix - Endocervical Swab Performing Organization Address [facility] Phone Number MISYS BT DIAGNOSTIC IMMUNOLOGY M3 ([facility]) * WET MOUNT (07/07/2018 3:33 PM CDT) Spec Vaginal M3 ([facility]) Description Order Comments None M3 ([facility]) Exam Bacteria present M2 ([facility]) Epithelial cells Clue cells present Report Status Final 07/07/2018 M2 ([facility]) Specimen Genital, vaginal - Vaginal Performing Organization Address [facility] Phone Number MISYS M3 ([facility]) M2 ([facility]) * SAMI STAIN (07/07/2018 3:33 PM CDT) Spec Vaginal M3 ([facility]) Description Order Comments None M3 ([facility]) Direct Exam No fungus seen by SAMI M2 ([facility]) Report Status Final 07/07/2018 M2 ([facility]) Specimen Genital, vaginal - Vaginal Performing Organization Address [facility] Phone Number MISYS M3 ([facility]) M2 ([facility]) * XRAY HIP BILATERAL 2 VIEWS AND [...] MD, 04/29/2018 8:52 AM Performing Organization Address [facility] Phone Number SMS * XRAY KNEE 1 [...] on 03/26/2018 DISCUSSION: See impression Procedure Note Martha, Sebastian/Gemaog In - 04/29/2018 8:58 AM CDT EXAM: [...] MD, 04/29/2018 8:53 AM Performing Organization Address City/State/Zipcode Phone Number SMS * XRAY SPINE LUMBOSACRAL [...] stool and overlying bowel gas. Procedure Note Martha, Sebastian/Mammog In - 04/29/2018 8:59 AM CDT EXAM: [...] MD, 04/29/2018 8:53 AM Performing Organization Address [facility] Phone Number SMS * H. PYLORI ANTIBODIES, IGG (03/26/2018 12:44 PM CDT) H. pylori, IgG, 4.91 LABORATORY Abs Reference range: 0.00 to 0.79 CORPORATION OF Unit: Index Value JOCELYN (note) Nega tive <0.80 Equi vocal0.80 - 0.89 Posi tive >0.89 Specimen Blood bag - BLOOD Performing Organization Address [facility] Phone Number Stat LABORATORY CORPOR[employer] OF [facility] [place] [address] JOCELYN 145 * VIT D, 25-HYDROXY (03/26/2018 10:22 AM CDT) Vit D, 24.3 (L) 30 - 100 ng/mL BT DIAGNOSTIC 25-Hydroxy Comment: IMMUNOLOGY Vitamin D deficiency has been defined by the [place] [employer] and Endocrine Society guideline as a level of serum 25-OH Vitamin D less than 20 ng/mL. The Endocrine Society further defines Vitamin D insufficiency as a level between 21 and 29 ng/mL and sufficiency as a level between 30 and 100 ng/mL. Performing Organization Address [facility] Phone Number MISYS BT DIAGNOSTIC IMMUNOLOGY * HIV-1/HIV-2 ROUTINE SCREENING (03/26/2018 10:22 AM CDT) HIV-1/HIV-2 Negative NEG BT MAIN-STATION 3 Performing Organization Address [facility] Phone Number MISYS BT MAIN-STATION 3 * HEMOGLOBIN A1C (03/26/2018 10:22 AM CDT) Hemoglobin A1c 5.8 4.3 - 6.1 % BT DIAGNOSTIC IMMUNOLOGY Est Average 119.8 mg/dL BT DIAGNOSTIC Gluc IMMUNOLOGY Specimen Blood Performing Organization Address [facility] Phone Number MISYS BT DIAGNOSTIC IMMUNOLOGY * [...] MAIN-STATION 4 Specimen Blood Performing Organization Address [facility] Phone Number [facility] * TSH (03/26/2018 10:22 AM CDT) TSH 0.68 0.45 - 5.33 uIU/mL BT MAIN-STATION 4 Specimen Blood Performing Organization Address [facility] Phone Number [facility] 4 * FREE T4 (03/26/2018 10:22 AM CDT) Free T4 0.76 0.61 - 1.12 ng/dl BT MAIN-STATION Comment: 4 females: 1st Trimester-0.52-1.10 ng/dL 2nd Trimester=0.45-0.99 ng/dL 3rd Trimester=0.48-0.95 ng/dL Specimen Blood Performing Organization Address [facility] Phone Number MISYS BT MAIN-STATION 4 * LIPID PROFILE (03/26/2018 10:22 AM CDT) Cholesterol 181 mg/dL BT MAIN-STATION Comment: 4 REFERENCE RANGE: Desirable: <200 mg/dL Borderline: 200-240 mg/dL High Risk: >240 mg/dL Triglyceride 91 <150 mg/dL BT MAIN-STATION Comment: 4 REFERENCE RANGE: Normal: <150 mg/dL Borderline High: 150-199 mg/dL High: 200-499 mg/dL Very High: >no=356 mg/dL HDL 33 mg/dL BT MAIN-STATION Comment: 4 Increased CHD risk: <40 mg/dL Decreased CHD risk: >60 mg/dL LDL 130 mg/dL BT MAIN-STATION Comment: 4 REFERENCE RANGE: Optimal: <100 mg/dL Near Optimal: 100-129 mg/dL Borderline High: 130-159 mg/dL High: 160-189 mg/dL Very High: >lp=333 mg/dL Specimen Blood Performing Organization Address City/State/Zipcode Phone Number MISYS BT MAIN-STATION 4 * [...] Gran 2 Specimen Blood Performing Organization Address [facility] Phone Number MISYS BT MAIN-STATION 2 * [...] HIP BILATERAL 3-4 VIEWS AND AP PELVIS [facility] INDICATION: 27 y.o. female-left thigh [...] MD, 03/26/2018 11:17 AM Performing Organization Address [facility] Phone Number SMS * XRAY HIP BILATERAL [...] HIP BILATERAL 3-4 VIEWS AND AP PELVIS [facility] INDICATION: 27 y.o. female-left thigh [...] AM Performing Organization Address City/State/Zipcode Phone Number [facility] * UA CHEMISTRIES (03/26/2018 9:17 AM CDT) Color Yellow M2 ([facility]) Clarity Clear M2 ([facility]) Spec [place] 1.020 1.001 - 1.035 M2 ([facility]) [...] M2 ([facility]) Blood Negative NEG M2 ([facility]) Specimen Urine Performing Organization Address City/State/Zipcode Phone Number MISYS M2 ([facility]) * URINE DRUG SCREEN (03/26/2018 9:17 AM CDT) Amphetamine Negative NEG BT MAIN-STATION Comment: 1 Calibrated Standard: D-Methamphetamine Positive if urine level >gh=8667 ng/mL Test performed on [id number] using [employer] Immunoassay Barbiturate Negative NEG BT MAIN-STATION Comment: 1 Calibrated Standard: Secobarbital Positive if urine level is >in=442 ng/mL Test performed on [id number] using [employer] Immunoassay Benzodiazepine Positive (A) NEG BT MAIN-STATION Comment: 1 Calibrated Standard: Lormethazepam Positive if urine level is >gp=781 ng/mL Test performed on [id number] using [employer] Immunoassay Cannabinoid Negative NEG BT MAIN-STATION Comment: 1 Calibrated Standard: 11 nor-delta(9)-THC carboxylic a Positive if urine level >or=50 Test performed on [id number] using [employer] Immunoassay Cocaine Negative NEG BT MAIN-STATION Comment: 1 Calibrated Standard: Benzoylecgonine Positive if urine level >ev=171 Test performed on [id number] using [employer] Immunoassay Opiate, Ur Negative NEG BT MAIN-STATION Comment: 1 Calibrated Standard: Morphine Positive if urine level >ew=322 Test performed on [id number] using [employer] Immunoassay PCP Negative NEG BT MAIN-STATION Comment: 1 Calibrated Standard: Phencyclidine Positive if urine level >or=25 Test performed on [id number] using [employer] Immunoassay Urine Toxicology Screen results are to be used only for Medical purposes. Specimen Urine Performing Organization Address City/State/Zipcode Phone Number MISYS BT MAIN-STATION 1 after 01/25/2018 Insurance Type Payer Benefit Subscriber ID Effective Phone Address Plan / Dates Group [facility] xxxxxx 2018- [phone] [employer] 2019 [id number] [place], [place] [address] Advance Directives For more information, please contact: [address] [address] Date Inactivated Comments Code Status Date Activated 12/02/2011 2:51 PM Full Code 11/28/2011 11:30 AM
--- OUTSIDE RECORDS SUMMARY | 2019-01-26 09:12 | XMS REPORT | Clinical Summary ---
Author Author P[facility]LL[facility] Address Unknown Phone Unavailable Care Team Providers Care Exploration Driller Name Role Phone Sharpless PCP Allergies Comments [...] Not on file Results Not on fileafter 01/25/2018 Insurance Payer Benefit Subscriber ID Type Phone Address Plan / Group MEDICAID MEDICAID xxxxxxxxx Medicaid [place]
[2019-01-26] MEDS ORDERED: DEXAMETHASONE SOD PHOS 10 MG/1 ML VIAL IM ONE (09:45)
--- NOTE | 2019-01-26 09:51 | NUR ---
PT HEARD CURSING TO REGISTRATION. REGISTRATION REMAIND PROFESSIONAL AND POLITE.
== END 2019-01-26 10:06 | disposition home or self-care (01) ==
LOC: FSED 09:09
DX: M54.5 Low back pain (principal); S39.012A Strain of muscle, fascia and tendon of lower back, initial encounter
CPT/HCPCS: 99283; J1100

== ENCOUNTER 2020-04-08 09:38 | Emergency (ER) | payer MEDICARE ==
[~2020-04-08] VITALS: Ht 152.4 cm; Wt 81.2 kg
--- OUTSIDE RECORDS SUMMARY | 2020-04-08 09:41 | XMS REPORT | Clinical Summary ---
Author Author [facility]LL[facility] Organization [facility] Address Unknown Phone Unavailable Care Team Providers Care Visual Basic Programmer Name Role Phone Sharpless PCP Allergies Comments Active Allergy Reactions Severity Noted Date Tramadol Hcl Hives 06/07/2017 Medications End Date Status Medication Sig Dispensed Refills Start Date Active amoxicillin (AMOXIL) 875 Take 875 mg 0 MG tablet by mouth 2 (two) times daily. 06/30/2019 acetaminophen-codeine Take 1-2 15 tablet 0 05/26 (TYLENOL #3) 300-30 mg tablets by 9 per tablet mouth every 6 (six) hours as needed for Pain for up to 10 days. Max Daily Amount: 8 tablets Active Problems Not on file Encounters Care Team Description Date Type Specialty Candice Orozco MD Acute hip pain, left (Primary Dx); Schizo affective schizophrenia (HCC); Obesity (BMI 30.0-34.9) 06/19/2019 Emergency Emergency Medicine - 06/20/2019 06/19/2019 Travel after 04/08/2019 Family History Medical History Relation Name Comments Cancer Father Hypertension Father Hypertension Mother Relation Name Status Comments Father Mother Social History Date Tobacco Use Types Packs/Day Years Used Never Smoker Smokeless Tobacco: Never Used Tobacco Cessation: Counseling Given: No Alcohol Use Drinks/Week oz/Week Comments No Sex Assigned at Date Recorded Not on file Industry Job Start Date Occupation Not on file Not on file Not on file Travel End Travel History Travel Start No recent travel history available. Last Filed Vital Signs Time Taken Vital Sign Reading 06/20/2019 1:09 AM CDT Blood Pressure 108/59 06/20/2019 1:09 AM CDT Pulse 65 06/19/2019 11:14 PM CDT Temperature 36.7 C (98 F) 06/20/2019 1:09 AM CDT Respiratory Rate 18 06/19/2019 11:14 PM CDT Oxygen Saturation 99% - Inhaled Oxygen - Concentration 06/19/2019 11:32 PM CDT Weight 83.9 kg (185 lb) 06/19/2019 11:32 PM CDT Height 152.4 cm (5') 06/19/2019 11:32 PM CDT Body Mass Index 36.13 Plan of Treatment Not on file Procedures Comments Procedure Name Priority Date/Time Associated Diag nosis XR HIP 2 VIEWS LEFT STAT 06/20/2019 12:26 AM CDT URINALYSIS W/ MICROSCOPIC STAT 06/19/2019 11:53 PM CDT SCREEN, URINE STAT 06/19/2019 11:53 PM CDT after 04/08/2019 Results * XR hip 2 views left (06/20/2019 12:26 AM CDT) Specimen Narrative Performed At FINAL REPORT GE [facility] RAD, HIP, 2 VIEWS, LEFT CLINICAL INDICATION:LEG PAIN COMPARISON: None FINDINGS: Two views of the left hip wer e obtained. The patient is status post ORIF of the left proximal to mid femur with a plate and screw device. The surg ical hardware is intact. There is no acute left hip fracture or disloc ation. IMPRESSION: Status post ORIF of the left proximal t o mid femur with intact surgical hardware. No acute left hip fracture or dislocati on. Signed: Liss Mejia MD Report Verified Date/Time: 9 00:32:18 Procedure Note Interface, External Ris In - 06/20/2019 12:34 AM CDT FINAL REPORT RAD, HIP, 2 VIEWS, LEFT CLINICAL INDICATION: LEG PAIN COMPARISON: None FINDINGS: Two views of the left hip were obtained. The patient is status post ORIF of the left proximal to mid femur with a plate and screw device. The surgical hardware is intact. There is no acute left hip fracture or dislocation. IMPRESSION: Status post ORIF of the left proximal to mid femur with intact surgical hardware. No acute left hip fracture or dislocation. Signed: Liss Mejia MD Report Verified Date/Time: 06/20/2019 00:32:18 Performing Organization Address City/State/Zipcode Ph one Number GE RIS * Screen, urine (06/19/2019 11:53 PM CDT) Preg Test, Ur Negative [facility] Specimen Urine Performing Organization Address [facility] Ph one Number [facility] [address] [place] [address] [facility] * Urinalysis w/Microscopic (06/19/2019 11:53 PM CDT) Color, UA Dark Yellow [facility] Clarity, UA Slightly Cloudy [facility] Specific [place], UA 1.035Comment: Refractometer = 1.001 - 1. 035 [facility] [address] [facility] pH, UA 6.5 5.0 - 8.0 [facility] Protein, UA Negative Negative [facility] Glucose, UA Negative Negative [facility] Ketones, UA Trace (A) Negative [facility] Bilirubin, UA Negative Negative [facility] Blood, UA Small (A) Negative [facility] Nitrite, UA Negative Negative [facility] Leukocytes, UA Negative Negative [facility] Urobilinogen, UA 0.2 0.2 - 1.0 mg/dL [facility], [facility] Bacteria, UA Few [facility], [facility] Mucus Few [facility], [facility], [facility] RBC, UA 5-10 /HPF [facility] WBC, UA <5 /HPF [facility], [facility] SQUAMOUS EPITHELIAL 10-20 /HPF [facility], [facility], [facility] Specimen Source [facility], [facility] Specimen Urine Performing Organization Address City/State/Zipcode Ph one Number [facility] [address] [place] [address] [facility], [facility], [facility] after 04/08/2019
--- OUTSIDE RECORDS SUMMARY | 2020-04-08 09:41 | XMS REPORT ---
Author Author [facility] t Organization [facility] Address [address] [place] [address] Phone Unavailable Care Team Providers Care Leach Cell Operator Name Role Phone NO, PCP PCP Unavailable KRISTEN VALDES Attphys Unavailable LÓPEZ PAULA Attphys Unavailable SHOAIB PÉREZ Attphys Unavailable Payers Payer Name Policy Type Policy Number Effective Date Expiration Date S ource Problems This patient has no known problems. Allergies, Adverse Reactions, Alerts Allergy Name Allergy Type Status Severity Reaction(s) Onset Date Inacti ve Date Treating Clinician Comments Source No Known Allergies DA Active U 2019-01-31 00:00:00 [facility] Tramadol Allergy to Substance Active Moderate Hives 2018-10-25 00:00:00 [facility] Medications Ordered Medication Name Filled Medication Name Start Date Stop Da te Current Medication? Ordering Clinician Indication Dosage Frequency Signature (SIG) Comments Components Source Ketorolac Tromethamine (Toradol) 10 Mg Tablet Ketorola c Tromethamine (Toradol) 10 Mg Tablet 2018-12-14 00:00:00 Yes Deshawn Nicole Md 10 Every 8 Hours for Pain [facility] Penicillin V Potassium 250 Mg Tablet Penicillin V Potassium 250 Mg Tablet 2018-12-14 00:00:00 Yes Deshawn Nicole Md 500 Four Times Daily [facility] Procedures This patient has no known procedures. Encounters Start Date/Time End Date/[facility] Source 2019-12-03 16:51:00 2019-12-03 17:32:[address] [facility] [id number] [facility] 2019-01-26 09:09:00 2019-01-26 10:06:[address] [facility] [id number] [facility] 2018-12-14 15:54:00 2018-12-14 16:50:[address] [facility] [id number] [facility] 2018-11-14 15:52:00 2018-11-14 17:32:[address] [facility] [id number] [facility] 2018-10-25 22:47:00 2018-10-26 00:40:[address] [facility] [id number] [facility] Results Test Description Test Time Test Comments Results Result Comments Source RAD, HIP, 2 VIEWS, LEFT 2019-06-20 00:32:00 Reason for exam: ->LEG PAINIs the patient ?->UnknownShould this be performed at the bedside?->No FINAL REPORT RAD, HIP, 2 VIEWS, LEFT CLINICAL INDICATION: LEG PAIN COMPARISON: None FINDINGS: Two views of the left hip were obtained. The patient is status post ORIF of the left proximal to mid femur with a plate and screw device. The surgical hardware is intact. There is no acute left hip fracture or dislocation. IMPRESSION:Status post ORIF of the left proximal to mid femur with intact surgical hardware.No acute left hip fracture or dislocation. Signed: Anette Mejia MDReport Verified Date/Time: 06/20/2019 00:32:18 ALYSIS W/ MICROSCOPIC 2019-06-20 00:13:00 Test Item COLOR (BEAKER) (test code = 470) Dark Yellow CLARITY (BEAKER) (test code = 469) Slightly Cloudy SPECIFIC GRAVITY UA (BEAKER) (test code = 468) 1.035 1.001-1 .035 Refractometer = 1.035 PH UA (BEAKER) (test code = 467) 6.5 5.0-8.0 PROTEIN UA (BEAKER) (test code = 464) Negative Negative GLUCOSE UA (BEAKER) (test code = 365) Negative Negative KETONES UA (BEAKER) (test code = 371) Trace Negative A BILIRUBIN UA (BEAKER) (test code = 462) Negative Negative BLOOD UA (BEAKER) (test code = 461) Small Negative A NITRITE UA (BEAKER) (test code = 465) Negative Negative LEUKOCYTE ESTERASE UA (BEAKER) (test code = 466) Negative Negat jamar UROBILINOGEN UA (BEAKER) (test code = 463) 0.2 mg/dL 0.2-1.0 BACTERIA (BEAKER) (test code = 517) Few MUCUS (BEAKER) (test code = 1574) Few RBC UA-MANUAL (BEAKER) (test code = 1659) 5-10 /HPF WBC UA-MANUAL (BEAKER) (test code = 1661) <5 /HPF SQUAMOUS EPITHELIAL MANUAL (BEAKER) (test code = 1663) 10-20 /HPF SOURCE(BEAKER) (test code = 2795) SCREEN, [id number] 00:08:00* Test Item Value Reference Range Interpretation Comments TEST URINE (BEAKER) (test code = 583) Negative - US TRANSVAGINAL NON [id number] 13:53:00 Name: MASON LEON [facility] : 1990 Age/S: 28 / F [address] [facility] Unit #: [id number] Loc: [place] [address] Phys: Clhoe Nino MAGICIAN/ILLUSIONIST Acct: [id number] Dis Date: Status: REG ER PHONE #: [phone] Exam Date: 01/31/2019 1230 FAX #: [phone] Reason: VAGINAL BLEEDING/PELVIC PAIN EXAMS: CPT CODE: [id number] [place] [id number] EXAM: Pelvic and transvaginal ultrasound and duplex sonography; INFORMATION: Pelvic pain; TECHNIQUE AND FINDINGS: Transabdominal and transvaginal grayscale imaging was combined with color Doppler sonography and spectral analysis. The uterus is of normal size and shape. It measures 6.5 x 3.1 x 3.9 cm. Thin endometrial stripe, measuring 2 mm in thickness. No fluid collection within the endometrial canal. Both ovaries of normal size and shape and with normal flow pattern on Doppler exam. The right ovary measures 2.3 x 1.9 x 1.3 cm. The left ovary measures 3.9 x 3.5 x 2 cm. No solid or cystic adnexal lesions. No free fluid within the cul-de-sac. IMPRESSION: Unremarkable pelvic ultrasound. at 1353 Reported and signed by: Florin Reaves M.D. CC: Chloe Nino NP Technologist: JOSE GUARDADO Trnscb Date/Time: 01/31/2019 (0853) EmilyGRW Orig Print D/T: S: 01/31/2019 (9526) Probe: [id number] PAGE 1 Signed Report - US PELVIS COMPLETE 2019-01-31 13:53:00 [facility] 1990 Age[facility]S: 28 / F [address] [facility] Unit #: [id number] Loc: [place] [address] Phys: Chloe Nino MAGICIAN/ILLUSIONIST Acct: [id number] Dis Date: Status: REG ER PHONE #: [phone] Exam Date: 01/31/2019 1230 FAX #: [phone] Reason: VAGINAL BLEEDING/PELVIC PAIN EXAMS: CPT CODE: [id number] US PELVIS COMPLETE [id number] EXAM: Pelvic and transvaginal ultrasound and duplex sonography; INFORMATION: Pelvic pain; TECHNIQUE AND FINDINGS: Transabdominal and transvaginal grayscale imaging was combined with color Doppler sonography and spectral analysis. The uterus is of normal size and shape. It measures 6.5 x 3.1 x 3.9 cm. Thin endometrial stripe, measuring 2 mm in thickness. No fluid collection within the endometrial canal. Both ovaries of normal size and shape and with normal flow pattern on Doppler exam. The right ovary measures 2.3 x 1.9 x 1.3 cm. The left ovary measures 3.9 x 3.5 x 2 cm. No solid or cystic adnexal lesions. No free fluid within the cul-de-sac. IMPRESSION: Unremarkable pelvic ultrasound. at 1353 Reported and signed by: Florin Reaves M.D. CC: Chloe Nino NP Technologist: JOSE GUARDADO Trnnyb Date/Time: 01/31/2019 (2596) Ez Orig Print D/T: S: 01/31/2019 (4894) Probe: PAGE 1 Signed Report - DUP AB/PEL/SC [id number] 13:53:00 Name: MASON LEON [facility] : 1990 Age/S: 28 / F [address] [facility] Unit #: [id number] Loc: [place] [address] Phys: Chloe Nino NP Acct: [id number] Dis Date: Status: REG ER PHONE #: [phone] Exam Date: 01/31/2019 1230 FAX #: [phone] Reason: PELVIC PAIN EXAMS: CPT CODE: [id number] DUP AB/PEL/SC COMP [id number] EXAM: Pelvic and transvaginal ultrasound and duplex sonography; INFORMATION: Pelvic pain; TECHNIQUE AND FINDINGS: Transabdominal and transvaginal grayscale imaging was combined with color Doppler sonography and spectral analysis. The uterus is of normal size and shape. It measures 6.5 x 3.1 x 3.9 cm. Thin endometrial stripe, measuring 2 mm in thickness. No fluid collection within the endometrial canal. Both ovaries of normal size and shape and with normal flow pattern on Doppler exam. The right ovary measures 2.3 x 1.9 x 1.3 cm. The left ovary measures 3.9 x 3.5 x 2 cm. No solid or cystic adnexal lesions. No free fluid within the cul-de-sac. IMPRESSION: Unremarkable pelvic ultrasound. at 1353 Reported and signed by: Florin Reaves M.D. CC: Chloe Nino NP Technologist: JOSE GUARDADO Trnscb Date/Time: 01/31/2019 (9887) t.GRW Orig Print D/T: S: 01/31/2019 (8410) Probe: PAGE 1 Signed Report BASIC METABOLIC [id number] 12:50:00* Test Item Value Reference Range Interpretation Comments SODIUM (test code = NA) 139 mmol/L 136-145 N POTASSIUM (test code = K) 4.6 mmol/L 3.5-5.1 N CHLORIDE (test code = CL) 108.0 mmol/L 98-107 H CARBON DIOXIDE (test code = CO2) 26.0 mmol/L 21-32 N ANION GAP (test code = GAP) 9.6 10-20 L GLUCOSE (test code = GLU) 76 mg/dL 74-106 N BLOOD UREA NITROGEN (test code = BUN) 15 mg/dL 7-18 N GLOMERULAR FILTRATION RATE (test code = GFR) > 60 mL/min >=60 Estimated GFR by using Modified MDRD formula.Chronic kidney disease is defined as either kidney damageor GFR <60 mL/min/1.73 m2 for >3 months. CREATININE (test code = CREAT) 0.80 mg/dL 0.55-1.02 N Note change in reference range due to change in reagent. BUN/CREATININE RATIO (test code = BUN/CREA) 18.8 10-20 N CALCIUM (test code = CA) 8.9 mg/dL 8.5-10.1 N BASIC METABOLIC [id number] 12:31:00* Test Item Value Reference Range Interpretation Comments SODIUM (test code = NA) 139 mmol/L 136-145 N POTASSIUM (test code = K) 4.6 mmol/L 3.5-5.1 N CHLORIDE (test code = CL) 108.0 mmol/L 98-107 H CARBON DIOXIDE (test code = CO2) mmol/L 21-32 ANION GAP (test code = GAP) 10-20 GLUCOSE (test code = GLU) mg/dL 74-106 BLOOD UREA NITROGEN (test code = BUN) mg/dL 7-18 GLOMERULAR FILTRATION RATE (test code = GFR) mL/min >=60 CREATININE (test code = CREAT) mg/dL 0.55-1.02 BUN/CREATININE RATIO (test code = BUN/CREA) 10-20 CALCIUM (test code = CA) mg/dL 8.5-10.1 CBC W/O [id number] 12:14:00* Test Item Value Reference Range Interpretation Comments WHITE BLOOD CELL (test code = WBC) 9.2 K/mm3 4.5-12.5 N RED BLOOD CELL (test code = RBC) 4.86 mill/mm3 3.7-5.2 N HEMOGLOBIN (test code = HGB) 13.5 gram/dL 11.5-15.5 N HEMATOCRIT (test code = HCT) 41.8 % 36.0-46.0 N MEAN CELL VOLUME (test code = MCV) 86.0 fL 80-98 N MEAN CELL HGB (test code = MCH) 27.8 picogram 27.0-33.0 N MEAN CELL HGB CONCETRATION (test code = MCHC) 32.3 gram/dL 33.0-36. 0 L RED CELL DISTRIBUTION WIDTH (test code = RDW) 14.5 % 11.6-16. 2 N PLATELET COUNT (test code = PLT) 310 K/mm3 150-450 N MEAN PLATELET VOLUME (test code = MPV) 10.3 fL 6.7-11.0 N CBC W/O [id number] 12:10:00* Test Item Value Reference Range Interpretation Comments WHITE BLOOD CELL (test code = WBC) K/mm3 4.5-12.5 RED BLOOD CELL (test code = RBC) mill/mm3 3.7-5.2 HEMOGLOBIN (test code = HGB) 13.5 gram/dL 11.5-15.5 N HEMATOCRIT (test code = HCT) 41.8 % 36.0-46.0 N MEAN CELL VOLUME (test code = MCV) fL 80-98 MEAN CELL HGB (test code = MCH) picogram 27.0-33.0 MEAN CELL HGB CONCETRATION (test code = MCHC) gram/dL 33.0-36. 0 RED CELL DISTRIBUTION WIDTH (test code = RDW) % 11.6-16. 2 PLATELET COUNT (test code = PLT) K/mm3 150-450 MEAN PLATELET VOLUME (test code = MPV) fL 6.7-11.0 URINALYSIS [id number] 11:46:00* Test Item Value Reference Range Interpretation Comments UA COLOR (test code = COLU) LIGHT YELLOW YELLOW UA APPEARANCE (test code = APPU) CLEAR CLEAR UA GLUCOSE DIPSTICK (test code = DGLUU) NEGATIVE mg/dL NEGATIVE UA BILIRUBIN DIPSTICK (test code = BILU) NEGATIVE mg/dL NEGATIVE UA KETONE DIPSTICK (test code = KETU) Negative mg/dL NEGATIVE UA SPECIFIC GRAVITY (test code = SGU) 1.017 1.001-1.035 UA BLOOD DIPSTICK (test code = LIZZIE) 1+ (Small) NEGATIVE A UA PH DIPSTICK (test code = AN) 6.0 5.0-8.0 UA PROTEIN DIPSTICK (test code = PROU) Negative mg/dL NEGATIVE UA UROBILINIOGEN DIPSTICK (test code = URO) NEGATIVE mg/dL NEGATIVE UA NITRITE DIPSTICK (test code = TOBI) NEGATIVE NEGATIVE UA LEUKOCYTE ESTERASE W REFLEX (test code = LEUUR) NEGATIVE NEG ATIVE UA WBC (test code = WBCU) 0-5 #/HPF 0-5 UA RBC (test code = RBCU) 0-2 #/HPF 0-5 UA EPITHELIAL CELLS (test code = EPIU) FEW per HPF FEW UA BACTERIA (test code = BACU) FEW #/HPF NONE A UA MUCUS (test code = MUCU) FEW #/LPF FEW Urine Source? Clean CatchUR HCG [id number] 11:46:00* Test Item Value Reference Range Interpretation Comments UR HCG QUAL (test code = HCGQLU) NEGATIVE This HCGQL test is NOT applicable for MALE patients.Check with nurse about probable order error.If Tumor Marker Test needed, nurse should order test "HCGTU"(Test #550.41423) Urine Source? Clean CatchURINALYSIS [id number] 11:40:00* Test Item Value Reference Range Interpretation Comments UA COLOR (test code = COLU) LIGHT YELLOW YELLOW UA APPEARANCE (test code = APPU) CLEAR CLEAR UA GLUCOSE DIPSTICK (test code = DGLUU) NEGATIVE mg/dL NEGATIVE UA BILIRUBIN DIPSTICK (test code = BILU) NEGATIVE mg/dL NEGATIVE UA KETONE DIPSTICK (test code = KETU) Negative mg/dL NEGATIVE UA SPECIFIC GRAVITY (test code = SGU) 1.017 1.001-1.035 UA BLOOD DIPSTICK (test code = LIZZIE) 1+ (Small) NEGATIVE A UA PH DIPSTICK (test code = AN) 6.0 5.0-8.0 UA PROTEIN DIPSTICK (test code = PROU) Negative mg/dL NEGATIVE UA UROBILINIOGEN DIPSTICK (test code = URO) NEGATIVE mg/dL NEGATIVE UA NITRITE DIPSTICK (test code = TOBI) NEGATIVE NEGATIVE UA LEUKOCYTE ESTERASE W REFLEX (test code = LEUUR) NEGATIVE NEG ATIVE UA WBC (test code = WBCU) per HPF 0-5 Urine Source? Clean CatchUR HCG [id number] 11:40:00* Test Item Value Reference Range Interpretation Comments UR HCG QUAL (test code = HCGQLU) NEGATIVE This HCGQL test is NOT applicable for MALE patients.Check with nurse about probable order error.If Tumor Marker Test needed, nurse should order test "HCGTU"(Test #550.06360) Urine Source? Clean CatchURINALYSIS [id number] 11:36:00* Test Item Value Reference Range Interpretation Comments UA COLOR (test code = COLU) LIGHT YELLOW YELLOW UA APPEARANCE (test code = APPU) CLEAR CLEAR UA GLUCOSE DIPSTICK (test code = DGLUU) NEGATIVE mg/dL NEGATIVE UA BILIRUBIN DIPSTICK (test code = BILU) NEGATIVE mg/dL NEGATIVE UA KETONE DIPSTICK (test code = KETU) Negative mg/dL NEGATIVE UA SPECIFIC GRAVITY (test code = SGU) 1.017 1.001-1.035 UA BLOOD DIPSTICK (test code = LIZZIE) 1+ (Small) NEGATIVE A UA PH DIPSTICK (test code = AN) 6.0 5.0-8.0 UA PROTEIN DIPSTICK (test code = PROU) Negative mg/dL NEGATIVE UA UROBILINIOGEN DIPSTICK (test code = URO) NEGATIVE mg/dL NEGATIVE UA NITRITE DIPSTICK (test code = TOBI) NEGATIVE NEGATIVE UA LEUKOCYTE ESTERASE W REFLEX (test code = LEUUR) NEGATIVE NEG ATIVE UA WBC (test code = WBCU) per HPF 0-5 Urine Source? Clean CatchUR HCG [id number] 11:36:00* Test Item Value Reference Range Interpretation Comments UR HCG QUAL (test code = HCGQLU) Urine Source? Clean CatchWET [id number] 21:51:00* Test Item Value Reference Range Interpretation Comments WBC WET PREP (BEAKER) (test code = 528) Few white blood cells seen CLUE CELLS (BEAKER) (test code = 526) No clue cells seen YEAST WET PREP (BEAKER) (test code = 530) Few budding yeast seen TRICH WET PREP (BEAKER) (test code = 531) No Trichomonas seen BACT WET PREP (BEAKER) (test code = 532) Moderate bacteria seen URINALYSIS W/ [id number] 21:50:00* Test Item Value Reference Range Interpretation Comments COLOR (BEAKER) (test code = 470) Yellow CLARITY (BEAKER) (test code = 469) Clear SPECIFIC GRAVITY UA (BEAKER) (test code = 468) 1.025 1.001-1 .035 PH UA (BEAKER) (test code = 467) 6.0 5.0-8.0 PROTEIN UA (BEAKER) (test code = 464) Negative Negative GLUCOSE UA (BEAKER) (test code = 365) Negative Negative KETONES UA (BEAKER) (test code = 371) Negative Negative BILIRUBIN UA (BEAKER) (test code = 462) Negative Negative BLOOD UA (BEAKER) (test code = 461) Trace Negative A NITRITE UA (BEAKER) (test code = 465) Negative Negative LEUKOCYTE ESTERASE UA (BEAKER) (test code = 466) Trace Negat jamar A UROBILINOGEN UA (BEAKER) (test code = 463) 0.2 mg/dL 0.2-1.0 BACTERIA (BEAKER) (test code = 517) Few MUCUS (BEAKER) (test code = 1574) Few RBC UA-MANUAL (BEAKER) (test code = 1659) 5-10 /HPF WBC UA-MANUAL (BEAKER) (test code = 1661) 5-10 /HPF SQUAMOUS EPITHELIAL MANUAL (BEAKER) (test code = 1663) 20-50 /HPF SOURCE(BEAKER) (test code = 2795) SCREEN, [id number] 21:47:00* Test Item Value Reference Range Interpretation Comments TEST URINE (BEAKER) (test code = 583) Negative BASIC METABOLIC [id number] 17:45:00* Test Item Value Reference Range Interpretation Comments SODIUM (BEAKER) (test code = 381) 136 meq/L 135-148 POTASSIUM (BEAKER) (test code = 379) 4.7 meq/L 3.6-5.5 CHLORIDE (BEAKER) (test code = 382) 107 meq/L 98-106 H CO2 (BEAKER) (test code = 355) 21 meq/L 24-32 L BLOOD UREA NITROGEN (BEAKER) (test code = 354) 14 mg/dL 10-26 CREATININE (BEAKER) (test code = 358) 0.79 mg/dL 0.50-1.20 GLUCOSE RANDOM (BEAKER) (test code = 652) 94 mg/dL 70-110 CALCIUM (BEAKER) (test code = 697) 8.9 mg/dL 8.5-10.5 EGFR (BEAKER) (test code = 1092) 106 mL/min/1.73 sq m ESTIMATED GFR IS NOT ACCURATE CREATININE CLEARANCE IN PREDICTING GLOMERULAR FILTRATION RATE. ESTIMATED GFR IS NOT APPLICABLE FOR DIALYSIS PATIENTS. HEPATIC FUNCTION [id number] 17:45:00* Test Item Value Reference Range Interpretation Comments TOTAL PROTEIN (BEAKER) (test code = 770) 7.6 gm/dL 6.0-8.5 ALBUMIN (BEAKER) (test code = 1145) 4.0 g/dL 3.5-5.0 BILIRUBIN TOTAL (BEAKER) (test code = 377) 0.5 mg/dL 0.1-1.2 BILIRUBIN DIRECT (BEAKER) (test code = 706) 0.4 mg/dL 0.0-0.4 ALKALINE PHOSPHATASE (BEAKER) (test code = 346) 56 U/L 30-115 AST (SGOT) (BEAKER) (test code = 353) 25 U/L 5-40 ALT (SGPT) (BEAKER) (test code = 347) 25 U/L 5-50 [id number] 17:45:00* Test Item Value Reference Range Interpretation Comments LIPASE (BEAKER) (test code = 749) 65 U/L 40-240 URINALYSIS W/ [id number] 17:43:00* Test Item Value Reference Range Interpretation Comments COLOR (BEAKER) (test code = 470) Dark Yellow CLARITY (BEAKER) (test code = 469) Clear SPECIFIC GRAVITY UA (BEAKER) (test code = 468) 1.020 1.001-1 .035 PH UA (BEAKER) (test code = 467) 6.0 5.0-8.0 PROTEIN UA (BEAKER) (test code = 464) Negative Negative GLUCOSE UA (BEAKER) (test code = 365) Negative Negative KETONES UA (BEAKER) (test code = 371) Trace Negative A BILIRUBIN UA (BEAKER) (test code = 462) Negative Negative BLOOD UA (BEAKER) (test code = 461) Trace Negative A NITRITE UA (BEAKER) (test code = 465) Negative Negative LEUKOCYTE ESTERASE UA (BEAKER) (test code = 466) Negative Negat jamar UROBILINOGEN UA (BEAKER) (test code = 463) 1.0 mg/dL 0.2-1.0 BACTERIA (BEAKER) (test code = 517) Occasional MUCUS (BEAKER) (test code = 1574) Few RBC UA-MANUAL (BEAKER) (test code = 1659) <5 /HPF WBC UA-MANUAL (BEAKER) (test code = 1661) <5 /HPF SQUAMOUS EPITHELIAL MANUAL (BEAKER) (test code = 1663) <5 /HPF SOURCE(BEAKER) (test code = 9627) SCREEN, [id number] 17:38:00* Test Item Value Reference Range Interpretation Comments TEST URINE (BEAKER) (test code = 583) Negative CBC W/PLT COUNT & AUTO [id number] 17:37:00* Test Item Value Reference Range Interpretation Comments WHITE BLOOD CELL COUNT (BEAKER) (test code = 775) 7.0 10e3/ L 4.0- 10.0 RED BLOOD CELL COUNT (BEAKER) (test code = 761) 4.68 10e6/ L 4.00-5 .00 HEMOGLOBIN (BEAKER) (test code = 410) 13.0 g/dL 12.0-15.0 HEMATOCRIT (BEAKER) (test code = 411) 38.8 % 36.0-45.0 MEAN CORPUSCULAR VOLUME (BEAKER) (test code = 753) 82.8 fL 82. 0-99.0 MEAN CORPUSCULAR HEMOGLOBIN (BEAKER) (test code = 751) 27.8 pg 27.0-33.0 MEAN CORPUSCULAR HEMOGLOBIN CONC (BEAKER) (test code = 752) 33.6 g/dL 32.0-36.0 RED CELL DISTRIBUTION WIDTH (BEAKER) (test code = 412) 13.5 % 10.3-14.2 PLATELET COUNT (BEAKER) (test code = 756) 342 10e3/ L 150-430 MEAN PLATELET VOLUME (BEAKER) (test code = 754) 9.1 fL 6.5-10 .5 NEUTROPHILS RELATIVE PERCENT (BEAKER) (test code = 429) 44 % LYMPHOCYTES RELATIVE PERCENT (BEAKER) (test code = 430) 47 % MONOCYTES RELATIVE PERCENT (BEAKER) (test code = 431) 7 % EOSINOPHILS RELATIVE PERCENT (BEAKER) (test code = 432) 2 % BASOPHILS RELATIVE PERCENT (BEAKER) (test code = 437) 1 % NEUTROPHILS ABSOLUTE COUNT (BEAKER) (test code = 670) 3.07 10e3/ L 1.80-8.00 LYMPHOCYTES ABSOLUTE COUNT (BEAKER) (test code = 414) 3.30 10e3/ L 1.48-4.50 MONOCYTES ABSOLUTE COUNT (BEAKER) (test code = 415) 0.48 10e3/ L 0. 00-1.30 EOSINOPHILS ABSOLUTE COUNT (BEAKER) (test code = 416) 0.13 10e3/ L 0.00-0.50 BASOPHILS ABSOLUTE COUNT (BEAKER) (test code = 417) 0.04 10e3/ L 0. 00-0.20
--- NOTE | 2020-04-08 10:14 | Emergency Department Note ---
History of Present Illnes History of Present Illness Chief Complaint: Chest Pain History of Present Illness This is a 29 year old female no significant PMH, c/o chest pain since last night, sharp, pleuritic, no f/c no cough. . Historian: Patient Arrival Mode: Car Lan Engineer Required: No Onset (how long ago): day(s) (1day) Radiation: back Severity: moderate Onset quality: sudden Timing of current episode: intermittent Progression: waxing and waning Chronicity: new Relieving factors: rest Exacerbating factors: movement Associated symptoms: denies other symptoms Treatments prior to arrival: none Risk factors: none Past Medical/Family History Physician Review I have reviewed the patient's past medical and family history. Any updates have been documented here. Past Medical History Recent Fever: No Clinical Suspicion of Infectio: No New/Unexplained Change in Ment: No Past Medical History: None Past Surgical History: Orthopedic Implants Other Surgery: Hernia repaired, bilateral leg surgery with pins and screws Social History Unable to obtain PSH: other (used to work for [employer]) Smoking Cessation: Never Smoker Alcohol Use: None Any Illegal Drug Use: No TB Exposure/Symptoms: No Physically hurt or threatened: No Family History Family history of heart diseas: Yes Other family history mother has enlarged heart Other Last Tetanus: unk Any Pre-Existing Lines (PICC,: No Review of Systems Review of Systems Constitutional: no symptoms EENTM: no symptoms Cardiovascular: as per HPI, chest pain Respiratory: no symptoms Gastrointestinal: no symptoms Genitourinary: no symptoms Musculoskeletal: no symptoms Neurological: no symptoms Psychological: no symptoms Endocrine: no symptoms Hematological/Lymphatic: no symptoms Review of other systems All other systems reviewed and negative. Physical Exam Related Data Allergies: Coded Allergies: tramadol (Verified Allergy, Intermediate, Hives, 10/25/18) Vital signs reviewed: Yes Physical Exam CONSTITUTIONAL Constitutional: well-developed, well-nourished HENT HENT: normocephalic, atraumatic, oropharynx clear/moist, nose normal HENT L/R: left ext ear normal, right ext ear normal EYES Eyes: PERRL, conjunctivae normal NECK Neck: ROM normal PULMONARY Pulmonary: effort normal, breath sounds normal, chest tenderness CARDIOVASCULAR Cardiovascular: regular rhythm, heart sounds normal, capillary refill normal, normal rate GASTROINTESTINAL Abdominal: soft, nontender, bowel sounds normal GENITOURINARY Genitourinary: exam deferred SKIN Skin: warm, dry MUSCULOSKELETAL Musculoskeletal: ROM normal NEUROLOGICAL Neurological: alert, oriented x 3, no gross motor or sensory deficits PSYCHOLOGICAL Psychological: mood/affect normal, judgement normal Results Laboratory Lab results reviewed: Yes Laboratory comments Ddimer normal, Cardiac marker nl, cxr ok. Imaging Imaging results reviewed: Yes Imaging Comments no pna, no pneumothorax, no effusion no chf. 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 Clinical Decision Tools HEART Score Date Taken: April 08, 2020 Assessment & Plan Assessment & Plan Problems: (1) Chest pain (2) Chest wall pain Assessment & Plan 29 yo AAF with low risk for CAD/ACS, atypical chest pain, likely musculoskeletal, will do basic cardiac work up, add D-Dimer. If her work up negative, she can be d/c home for out patient f/u. Home Meds Active Scripts Omeprazole (OMEPRAZOLE) 20 Mg Tablet.dr, 1 TAB PO BID for 14 Days, #28 TAB 0 Refills Prov:SAMIRA INGRAM MD 04/08/20 Acetaminophen (ACETAMINOPHEN) 325 Mg Tablet, 325 MG PO Q6H PRN for CHEST PAIN for 30 Days, #60 TAB Prov:SAMIRA INGRAM MD 04/08/20 Discontinued Scripts Ketorolac Tromethamine (TORADOL) 10 Mg Tablet, 10 MG PO Q8H for pain for 7 Days, #21 Prov:MALIA CNOWAY MD 12/14/18 Penicillin V Potassium (PENICILLIN V POTASSIUM) 250 Mg Tablet, 500 MG PO QID for 7 Days, #30 Prov:MALIA CONWAY MD 12/14/18 SAMIRA INGRAM MD April 08, 2020 10:14
[2020-04-08] MEDS ORDERED: OMEPRAZOLE20 M1 PO (10:24)
[2020-04-08] MEDS ORDERED: ACETAMINOPHEN325 M1 PO (10:24)
[2020-04-08 10:37] VITALS: BP 124/61
--- NOTE | 2020-04-08 10:41 | Diagnostic Imaging Report ---
EXAMINATION: CXR 2 VIEW - HOPD INDICATION: Chest pain COMPARISON: None FINDINGS: LINES/TUBES:None LUNGS:The lungs are well-inflated. No focal consolidation or pulmonary edema. PLEURA:No pleural effusion or pneumothorax. MEDIASTINUM:The cardiomediastinal silhouette appears normal in size and shape. BONES/SOFT TISSUES:No acute osseous injury. ABDOMEN:No free air under the diaphragm. IMPRESSION: No focal pneumonia or pulmonary edema. Signed by: Miguel Butler MD on 04/08/2020 10:38 AM
== END 2020-04-08 11:05 | disposition home or self-care (01) ==
LOC: FSED 09:38
DX: R07.89 Other chest pain (principal)
CPT/HCPCS: 71046; 80053; 81025; 82553; 84484; 85025; 85379; 93005; 99284

== ENCOUNTER 2020-07-04 19:15 | Emergency (ER) | payer MEDICARE ==
[~2020-07-04] VITALS: Ht 152.4 cm; Wt 83.5 kg
[~2020-07-04 19:15] MED LIST changes: +ACETAMINOPHEN325 M1 PO; +OMEPRAZOLE20 M1 PO
--- NOTE | 2020-07-04 20:00 | Emergency Department Note ---
History of Present Illnes History of Present Illness Chief Complaint: General Medicine Complaints History of Present Illness This is a 30 year old female Chief Complaint Comment PT C/O BEING DIZZY AND NAUSEATED FOR PAST 3 DAYS, PROGRESSIVELY WORSE PAST 3 DAYS, DENIES VOMITTING JUST FEVER NAUSEOUS, DENIES FEVER, COUGH, OR SOB SYMPTOMS, DENIES ANY POSSIBLE EXPOSURE TO COVID RELATED PATIENTS . Historian: Patient Arrival Mode: Car Onset (how long ago): day(s) (2) Location: epigastric Quality: vomiting Radiation: Denies non-radiation, Denies back, Denies neck, Denies extremity, Denies abdomen, Denies periumbilical, Denies flank, Denies proximal, Denies distal, Denies other Severity: mild Onset quality: gradual Duration (how long): day(s) (2) Timing of current episode: intermittent Progression: waxing and waning Chronicity: new Context: Denies recent illness, Denies recent surgery, Denies recent immo bilization, Denies recent travel, Denies trauma/injury, Denies new medications, Denies hx of DVT/PE, Denies non-compliance w/ medications, Denies other Relieving factors: none Exacerbating factors: none Associated symptoms: Reports denies other symptoms, Reports nausea/vomiting; Denies confusion, Denies chest pain, Denies cough, Denies diaphoresis, Denies fever/chills, Denies headaches, Denies loss of appetite, Denies malaise, Denies rash, Denies seizure, Denies shortness of breath, Denies syncope, Denies weakness, Denies other Treatments prior to arrival: none Past Medical/Family History Physician Review I have reviewed the patient's past medical and family history. Any updates have been documented here. Past Medical History Recent Fever: No Clinical Suspicion of Infectio: No New/Unexplained Change in Ment: No Past Medical History: None Past Surgical History: Hernia Repair Other Surgery: Hernia repaired, bilateral leg surgery with pins and screws Social History Smoking Cessation: Never Smoker Counseling Performed: No Alcohol Use: None Any Illegal Drug Use: No Physically hurt or threatened: No Other Last Tetanus: unk Any Pre-Existing Lines (PICC,: No Review of Systems Review of Systems Constitutional: Reports no symptoms EENTM: Reports no symptoms Cardiovascular: Reports no symptoms Respiratory: Reports no symptoms Gastrointestinal: Reports as per HPI Genitourinary: Reports no symptoms Musculoskeletal: Reports no symptoms Integumentary: Reports no symptoms Neurological: Reports no symptoms Psychological: Reports no symptoms Endocrine: Reports no symptoms Hematological/Lymphatic: Reports no symptoms Physical Exam Related Data Allergies: Coded Allergies: tramadol (Verified Allergy, Intermediate, Hives, 10/25/18) Triage Vital Signs Vital Signs Date Time Temp Pulse Resp B/P (MAP) Pulse Ox O2 Delivery O2 Flow Rate FiO2 07/04/20 19:25 98.8 70 18 116/68 100 Room Air Vital signs reviewed: Yes Physical Exam CONSTITUTIONAL Constitutional: Present well-developed, Present well-nourished HENT HENT: Present normocephalic, Present atraumatic, Present oropharynx clear/moist, Present nose normal HENT L/R: Present left ext ear normal, Present right ext ear normal EYES Eyes: Reports PERRL, Reports conjunctivae normal NECK Neck: Present ROM normal PULMONARY Pulmonary: Present effort normal, Present breath sounds normal CARDIOVASCULAR Cardiovascular: Present regular rhythm, Present heart sounds normal, Present capillary refill normal, Present normal rate GASTROINTESTINAL Abdominal: Present soft, Present nontender, Present bowel sounds normal GENITOURINARY Genitourinary: Present exam deferred SKIN Skin: Present warm, Present dry MUSCULOSKELETAL Musculoskeletal: Present ROM normal NEUROLOGICAL Neurological: Present alert, Present oriented x 3, Present no gross motor or sensory deficits PSYCHOLOGICAL Psychological: Present mood/affect normal, Present judgement normal Results Laboratory Lab results reviewed: Yes Assessment & Plan Medical Decision Making MDM gastritis PUD Reassessment Reassessment time: 19:59 Reassessment BETTER Assessment & Plan Final Impression: (1) Gastritis, acute (2) Vomiting Depart Disposition: HOME, SELF-CARE Last Vital Signs Date Time Temp Pulse Resp B/P (MAP) Pulse Ox O2 Delivery O2 Flow Rate FiO2 07/04/20 19:25 98.8 70 18 116/68 100 Room Air Home Meds Active Scripts Omeprazole (OMEPRAZOLE) 20 Mg Tablet.dr, 1 TAB PO BID for 14 Days, #28 TAB 0 Refills Prov:SAMIRA INGRAM MD 04/08/20 Acetaminophen (ACETAMINOPHEN) 325 Mg Tablet, 325 MG PO Q6H PRN for CHEST PAIN for 30 Days, #60 TAB Prov:SAMIRA INGRAM MD 04/08/20 PJ YEN MD Jul 04, 2020 20:00
--- OUTSIDE RECORDS SUMMARY | 2020-07-04 20:09 | XMS REPORT | Clinical Summary ---
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
--- OUTSIDE RECORDS SUMMARY | 2020-07-04 20:10 | XMS REPORT | Continuity of Care Document ---
Author Author [facility] t Organization [facility] Address 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 Self Pay NA [facility] Problems Condition Name Condition Details Condition Category Status Onset Date Resolution Date Last Treatment Date Treating Clinician Comments Source Chest pain Problem Active [facility] Chest wall pain Problem Active [facility] Allergies, Adverse Reactions, Alerts Allergy Name Allergy Type Status Severity Reaction(s) Onset Date Inacti ve Date Treating Clinician Comments Source No Known Allergies DA Active U 2019-01-31 00[facility] Tr[facility]ol Allergy to substance Active Moderate Hives 2018-10-25 00:00:00 [facility] Tramadol Hcl Drug Allergy Active Hives 2017-06-07 00:00:00 [facility] Family History Family Member Diagnosis Comments Start Date Stop Date Source Natural father Cancer [facility] Natural father Hypertension [facility] Natural mother Hypertension [facility] Social History Social Habit Start Date Stop Date Quantity Comments Source Sex Assigned At [facility] Smoking Status Start Date Stop Date Source Never smoker [facility] Medications Ordered Medication Name Filled Medication Name Start Date Stop Da te Current Medication? Ordering Clinician Indication Dosage Frequency Signature (SIG) Comments Components Source Acetaminophen Acetaminophen 2020-04-08 10:24:00 Yes 325 Every 6 Hours as needed for Chest Pain [facility] Omeprazole Omeprazole 2020-04-08 10:24:00 Yes 1 Twi ce A Day [facility] Ketorolac Tromethamine (Toradol) 10 Mg TABLET Ketorola c Tromethamine (Toradol) 10 Mg TABLET 2018-12-14 15:34:00 2020-04-08 00:00:00 No 10 Every 8 Hours for Pain [facility] Penicillin V Potassium Penicillin V Potassium 2018-12-14 15:34:0 0 2020-04-08 00:00:00 No 500 Four Times Daily [facility] amoxicillin (AMOXIL) 875 MG tablet 2017-08-16 21:11:04 Yes 875mg Q.5D Take 875 mg by mouth 2 (two) times daily. [facility] Vital Signs Vital Name Observation Time Observation Value Comments Source Body Temperature 2020-04-08 10:37:00 97.8 [degF] [facility] Weight 2020-04-08 09:50:00 179.06 [lb_av] [facility] BMI (Body Mass Index) 2020-04-08 09:50:00 35.0 kg/m2 [facility] Procedures This patient has no known procedures. Plan of Care Planned Activity Planned Date Details Comments Source Instructions Chest Pain - Noncardiac [facility] Encounters Start Date/Time End Date/Time Encounter Type Admission Type [facility] Care Department Encounter ID Source 2020-04-08 09:38:00 2020-04-08 09:38:00 Registered Emergency Room 1 SAMIRA INGRAM [facility] [id number] [facility] - Patients [facility] 2019-12-03 15:51:00 2019-12-03 16:32:00 Departed Emergency Room [facility] [id number] [facility] 2019-01-26 09:09:00 2019-01-26 10:06:00 Departed Emergency Room [facility] [id number] [facility] 2018-12-14 15:54:00 2018-12-14 16:50:00 Departed Emergency Room [facility] [id number] [facility] Patients [facility] 2018-11-14 15:52:00 2018-11-14 17:32:00 Departed Emergency Room [facility] [id number] [facility] Patients [facility] 2018-10-25 22:47:00 2018-10-26 00:40:00 Departed Emergency Room [facility] [id number] [facility] Results Test Description Test Time Test Comments Results Result Comments Source CXR 2 VIEW - HOPD 2020-04-08 10:38:00 [place] [address] Patient Name: MASON REYES MR #: [id number] : 1990 Age/Sex: 29/F Req #: [id number] Adm Physician: Ordered by: SAMIRA INGRAM MD Report #: [id number] Location: [facility] Room/Bed: Procedure: [id number] HOPD/CXR 2 VIEW - HOPD Exam Date: 04/08/20 Exam Time: 1019 REPORT STATUS: Signed EXAMINATION: CXR 2 VIEW - HOPD INDICATION: Chest pain COMPARISON: None FINDINGS: LINES/TUBES:None LUNGS:The lungs are well-inflated. No focal consolidation or pulmonary edema. PLEURA:No pleural effusion or pneumothorax. MEDIA STINUM:The cardiomediastinal silhouette appears normal in size and shape. BONES/SOFT TISSUES:No acute osseous injury. ABDOMEN:No free air under the diaphragm. IMPRESSION: No focal pneumonia or pulmonary edema. Signed by: Briseida Montgomery MD on 04/08/2020 10:38 AM Dictated By: BRISEIDA MONTGOMERY MD 1038 Transcribed By: JAVIER on 04/08/20 1038 COPY TO: SAMIRA INGRAM MD RAD, HIP, 2 VIEWS, LEFT 2019-06-20 00:32:00 [...] /HPF SOURCE(BEAKER) (test code = 2795) SCREEN, [id number] 00:08:00* Test Item Value Reference Range Interpretation Comments TEST URINE (BEAKER) (test code = 583) Negative - US TRANSVAGINAL NON [id number] 13:53:00 Name: MASON REYES [facility] : 1990 Age/S: 28 / F [address] [facility] Unit #: [id number] Loc: [place] [address] Phys: Chloe Nino NP Acct: [id number] Dis Date: Status: REG ER PHONE #: [phone] Exam Date: 01/31/2019 1230 FAX #: [phone] Reason: VAGINAL BLEEDING/PELVIC PAIN EXAMS: CPT CODE: [id number] [place] [address] EXAM: Pelvic and transvaginal ultrasound and duplex [...] adnexal lesions. No free fluid within the cul-de- sac. IMPRESSION: Unremarkable pelvic ultrasound. at 1353 Reported and signed by: Florin Reaves M.D. CC: Chloe Nino NP Technologist: JOSE GUARDADO Trnnyb Date/Time: 01/31/2019 (1353) [email or web address] Orig Print D/T: S: 01/31/2019 (7216) Probe: [id number] PAGE 1 Signed Report - US PELVIS [id number] 13:53:00 Name: MASON REYES [facility] : 1990 Age/S: 28 / F [address] [facility] Unit #: [id number] Loc: [place] [address] Phys: Chloe Nino NP Acct: [id number] Dis Date: Status: REG ER PHONE #: [phone] Exam Date: 01/31/2019 1230 FAX #: [phone] Reason: VAGINAL BLEEDING/PELVIC PAIN EXAMS: CPT CODE: [id number] US PELVIS COMPLETE [id number] EXAM: Pelvic and transvaginal ultrasound and duplex [...] adnexal lesions. No free fluid within the cul-de- sac. IMPRESSION: Unremarkable pelvic ultrasound. at 1353 Reported and signed by: Florin Reaves M.D. CC: Chloe Nino NP Technologist: JOSE GUARDADO Trnscb Date/Time: 01/31/2019 (2863) Ez Orig Print D/T: S: 01/31/2019 (2376) Probe: PAGE 1 Signed Report - DUP AB/PEL/SC [id number] 13:53:00 Name: MASON REYES [facility] : 1990 Age/S: 28 / F [address] [facility] Unit #: [id number] Loc: [place] [address] Phys: Chloe Nino NP Acct: [id number] Dis Date: Status: REG ER PHONE #: [phone] Exam Date: 01/31/2019 1230 FAX #: [phone] Reason: PELVIC PAIN EXAMS: CPT CODE: [id number] DUP AB/PEL/SC COMP 85989 EXAM: Pelvic and transvaginal ultrasound and duplex [...] NP Technologist: JOSE GUARDADO Trnscb Date/Time: 01/31/2019 (1463) Ez Orig Print D/T: S: 01/31/2019 (9905) Probe: PAGE 1 Signed Report BASIC METABOLIC [id number] 12:50:00* Test Item Value Reference Range Interpretation [...] CA) 8.9 mg/dL 8.5-10.1 N BASIC METABOLIC [id number] 12:31:00* Test Item Value Reference Range Interpretation [...] code = CA) mg/dL 8.5-10.1 CBC W/O [id number] 12:14:00* Test Item Value Reference Range Interpretation [...] MPV) 10.3 fL 6.7-11.0 N CBC W/O [id number] 12:10:00* Test Item Value Reference Range Interpretation [...] (test code = MPV) fL 6.7-11.0 URINALYSIS [id number] 11:46:00* Test Item Value Reference Range Interpretation [...] #/LPF FEW Urine Source? Clean CatchUR HCG [id number] 11:46:00* Test Item Value Reference Range Interpretation Comments UR HCG QUAL (test code = HCGQLU) NEGATIVE This HCGQL test is NOT applicable for MALE patients.Check with nurse about probable order error.If Tumor Marker Test needed, nurse should order test "HCGTU"(Test #550.42964) Urine Source? Clean CatchURINALYSIS [id number] 11:40:00* Test Item Value Reference Range Interpretation [...] A UA PH DIPSTICK (test code = NA) 6.0 5.0-8.0 UA PROTEIN DIPSTICK (test code = PROU) Negative mg/dL NEGATIVE UA UROBILINIOGEN DIPSTICK (test code = URO) NEGATIVE mg/dL NEGATIVE UA NITRITE DIPSTICK (test code = TOBI) NEGATIVE NEGATIVE UA LEUKOCYTE ESTERASE W REFLEX (test code = LEUUR) NEGATIVE NEG ATIVE UA WBC (test code = WBCU) per HPF 0-5 Urine Source? Clean CatchUR HCG [id number] 11:40:00* Test Item Value Reference Range Interpretation Comments UR HCG QUAL (test code = HCGQLU) NEGATIVE This HCGQL test is NOT applicable for MALE patients.Check with nurse about probable order error.If Tumor Marker Test needed, nurse should order test "HCGTU"(Test #550.09971) Urine Source? Clean CatchURINALYSIS [id number] 11:36:00* Test Item Value Reference Range Interpretation [...] HPF 0-5 Urine Source? Clean CatchUR HCG [id number] 11:36:00* Test Item Value Reference Range Interpretation Comments UR HCG QUAL (test code = HCGQLU) Urine Source? Clean CatchWET [id number] 21:51:00* Test Item Value Reference Range Interpretation [...] = 532) Moderate bacteria seen URINALYSIS W/ [id number] 21:50:00* Test Item Value Reference Range Interpretation [...] /HPF SOURCE(BEAKER) (test code = 2795) SCREEN, [id number] 21:47:00* Test Item Value Reference Range Interpretation Comments TEST URINE (BEAKER) (test code = 583) Negative BASIC METABOLIC [id number] 17:45:00* Test Item Value Reference Range Interpretation [...] NOT APPLICABLE FOR DIALYSIS PATIENTS. HEPATIC FUNCTION [id number] 17:45:00* Test Item Value Reference Range Interpretation [...] (test code = 347) 25 U/L 5-50 [id number] 17:45:00* Test Item Value Reference Range Interpretation Comments LIPASE (BEAKER) (test code = 749) 65 U/L 40-240 URINALYSIS W/ [id number] 17:43:00* Test Item Value Reference Range Interpretation [...] 1663) <5 /HPF SOURCE(BEAKER) (test code = 2795) SCREEN, [id number] 17:38:00* Test Item Value Reference Range Interpretation Comments TEST URINE (BEAKER) (test code = 583) Negative CBC W/PLT COUNT & AUTO [id number] 17:37:00* Test Item Value Reference Range Interpretation [...]
== END 2020-07-04 20:05 | disposition home or self-care (01) ==
LOC: FSED 19:45
DX: R42 Dizziness and giddiness (principal); R11.2 Nausea with vomiting, unspecified; K29.00 Acute gastritis without bleeding
CPT/HCPCS: 99283

== ENCOUNTER 2020-11-20 08:22 | Emergency (ER) | payer MEDICARE ==
[~2020-11-20] VITALS: Ht 152.4 cm; Wt 84.1 kg
== END 2020-11-20 11:05 | disposition short-term general hospital (02) ==
LOC: FSED 08:29
DX: O00.90 Unspecified ectopic pregnancy without intrauterine pregnancy (principal)
CPT/HCPCS: 36415; 76705; 76817; 81003; 81025; 84702; 99284

== ENCOUNTER 2022-03-27 18:35 | Emergency (ER) | payer MEDICARE ==
[~2022-03-27] VITALS: Ht 152.4 cm; Wt 83.9 kg
[2022-03-27] MEDS ORDERED: ONDANSETRON ODT4 MG PO (21:44)
== END 2022-03-27 22:06 | disposition home or self-care (01) ==
LOC: FSED 18:42
DX: O26.91 Pregnancy related conditions, unspecified, first trimester (principal); R10.2 Pelvic and perineal pain
CPT/HCPCS: 76801; 76817; 81003; 81025; 99283

== ENCOUNTER 2023-03-27 12:40 | Emergency (ER) | payer MEDICARE, OTHER ==
[~2023-03-27] VITALS: Ht 152.4 cm; Wt 79.4 kg
[~2023-03-27 12:40] MED LIST changes: +ONDANSETRON ODT4 MG PO
[2023-03-27] MEDS ORDERED: AUGMENTIN 500-1 EACH PO (13:30)
== END 2023-03-27 13:36 | disposition home or self-care (01) ==
LOC: FSED 12:43
DX: R50.9 Fever, unspecified (principal); J02.9 Acute pharyngitis, unspecified
CPT/HCPCS: 83518; 87400; 99282

== ENCOUNTER 2024-06-22 11:51 | Emergency (ER) | payer MEDICARE, OTHER ==
[~2024-06-22] VITALS: Ht 152.4 cm; Wt 84.8 kg
[~2024-06-22 11:51] MED LIST changes: +AUGMENTIN 500-1 EACH PO
[2024-06-22 12:02] VITALS: PULSE 97; RESP 18; TEMP 97.8; O2SAT 99
[2024-06-22] MEDS ORDERED: CYCLOBENZAPRINE5 MG PO (14:46)
== END 2024-06-22 15:30 | disposition home or self-care (01) ==
LOC: FSED 12:01
DX: S02.2XXA Fracture of nasal bones, initial encounter for closed fracture (principal); R07.89 Other chest pain; M25.552 Pain in left hip; M25.551 Pain in right hip; S63.592A Other specified sprain of left wrist, initial encounter; V86.59XA Driver of other special all-terrain or other off-road motor vehicle injured in nontraffic accident, initial encounter; Y92.89 Other specified places as the place of occurrence of the external cause
CPT/HCPCS: 70450; 70486; 71046; 74176; 99283

== ENCOUNTER 2024-10-18 15:15 | Emergency (ER) | payer MEDICARE ==
[~2024-10-18] VITALS: Ht 152.4 cm; Wt 97.6 kg
[~2024-10-18 15:15] MED LIST changes: +CYCLOBENZAPRINE5 MG PO; +ESGIC 50-325-41 EACH PO; +OMEPRAZOLE40 MG PO
[2024-10-18] MEDS: KETOROLAC TROMETHAMINE 60 MG/2 ML VIAL IM ONE (16:02)
[2024-10-18 18:32] VITALS: PULSE 69; RESP 16; TEMP 97.7; O2SAT 100
[2024-10-18] MEDS ORDERED: IBUPROFEN600 MG PO (18:51)
[2024-10-18 19:00] VITALS: BP 136/86; PULSE 64; RESP 16; TEMP 97.7
== END 2024-10-18 19:03 | disposition home or self-care (01) ==
LOC: FSED 15:20
DX: S80.01XA Contusion of right knee, initial encounter (principal); S93.491A Sprain of other ligament of right ankle, initial encounter; W01.0XXA Fall on same level from slipping, tripping and stumbling without subsequent striking against object, initial encounter; Y93.01 Activity, walking, marching and hiking; Y92.512 Supermarket, store or market as the place of occurrence of the external cause
CPT/HCPCS: 73562; 73590; 73610; 81025; 99284; J1885